=== PATIENT | female | born 1945 | race Caucasian/White ===

== ENCOUNTER 2016-10-24 08:52 | Outpatient (CLI) | payer MEDICARE, BC ==
[~2016-10-24 08:52] MED LIST: DEXAMETHASONE SOD PHOSPHATE IV PRN; IRON SUCROSE COMPLEX 200 MG in NORMAL SALINE 100 ML IV PRN; NORMAL SALINE 250 ML IV PRN; NORMAL SALINE IV PRN
[2016-10-24 10:19] VITALS: BP 153/71
== END 2016-10-24 10:34 | disposition home or self-care (01) ==
LOC: II 08:52 → 5TH 08:54 → II 10:34
PROVIDERS: ATTEND Internal Medicine Medical Oncology
PROC: 3E033GC Introduction of Other Therapeutic Substance into Peripheral Vein, Percutaneous Approach (ICD-10-PCS; principal; 2016-10-24)
PROC: 3E0333Z Introduction of Anti-inflammatory into Peripheral Vein, Percutaneous Approach (ICD-10-PCS; 2016-10-24)
DX: N18.6 End stage renal disease (principal); D63.1 Anemia in chronic kidney disease
CPT/HCPCS: 96365; 96375; J1756; J1100; 96367

== ENCOUNTER 2017-03-10 09:30 | Inpatient (IN) | payer MEDICARE, BC ==
[2017-03-10] MEDS ORDERED: ONDANSETRON 4 MG TAB.RAPDIS PO ONE (09:43)
--- NOTE | 2017-03-10 09:46 | ER Document Report ---
ED Medical Screen (RME) - General Chief Complaint: Abdominal Pain Stated Complaint: VOMITING Notes: The patient is a 71-year-old female, past medical history peritoneal dialysis patient (Dr. Burgess is her Regulatory Product Manager), ventral hernia, presents with 3 days of nausea, vomiting and upper abdominal pain. Normal bowel movements. Taking without much relief of symptoms. Last dialysis session 3 days ago. Moderate upper abdominal tenderness. Good bowel sounds. I have greeted and performed a rapid initial assessment of this patient. A comprehensive ED assessment and evaluation of the patient, analysis of test results and completion of the medical decision making process will be conducted by additional ED providers. TRAVEL OUTSIDE OF THE [place] IN LAST 30 DAYS: No - Related Data Allergies/Adverse Reactions: aspirin [Aspirin] Allergy (Mild, Verified 03/10/17 09:37) kidneys burn Past Medical History - Past Medical History Cardiac Medical History: Reports: Hx Hypertension - on meds/recent new med x 3 weeks Denies: Hx Coronary Artery Disease, Hx Heart Attack Pulmonary Medical History: Reports: Hx Pneumonia Denies: Hx Asthma, Hx Bronchitis, Hx COPD Neurological Medical History: Reports: Hx Cerebrovascular Accident - 2003 WITH HX OF R SIDED WEAKNESS. Denies: Hx Seizures Renal/ Medical History: Reports: Hx Peritoneal Dialysis Musculoskeltal Medical History: Denies Hx Arthritis - Immunizations Hx Diphtheria, Pertussis, Tetanus Vaccination: Yes Physical Exam - Vital signs Vitals: Temp Pulse Resp BP Pulse Ox 98.8 F 78 16 144/85 H 97 03/10/17 09:37 03/10/17 09:37 03/10/17 09:37 03/10/17 09:37 03/10/17 09:37 Course - Vital Signs Vital signs: Temp Pulse Resp BP Pulse Ox 98.8 F 78 16 144/85 H 97 03/10/17 09:37 03/10/17 09:37 03/10/17 09:37 03/10/17 09:37 03/10/17 09:37
[2017-03-10 10:14] LABS: ABSOLUTE LYMPHOCYTES (AUTO) 0.8 10^3/uL (0.5-4.7); ABSOLUTE MONOCYTES (AUTO) 0.6 10^3/uL (0.1-1.4); ABSOLUTE NEUT (AUTO) 7.3 10^3/uL (1.7-8.2); BASOPHILS % (AUTO) 0.2 % (0-2); EOSINOPHILS % (AUTO) 0.1 % (0-6); HEMATOCRIT 41.6 % (36.0-47.0); HEMOGLOBIN 13.6 g/dL (12.0-15.5); HGB HCT DIFFERENCE -0.8; LYMPHOCYTES % (AUTO) 8.9 % (13-45); MEAN CORPUSCULAR HGB CONC 32.8 g/dL (32.0-36.0); MEAN CORPUSCULAR VOLUME 92 fl (80-97); MONOCYTES % (AUTO) 6.7 % (3-13); RED BLOOD COUNT 4.54 10^6/uL (3.72-5.28); SEGMENTED NEUTROPHILS % (AUTO) 84.1 % (42-78); WHITE BLOOD COUNT 8.7 10^3/uL (4.0-10.5)
[2017-03-10 10:35] LABS: ALANINE AMINOTRANSFERASE 21 U/L (9-52); ALBUMIN 3.2 g/dL (3.5-5.0); ALKALINE PHOSPHATASE 55 U/L (38-126); ANION GAP 9 (5-19); ASPARTATE AMINO TRANSFERASE 22 U/L (14-36); BILIRUBIN,DIRECT 0.4 mg/dL (0.0-0.4); BILIRUBIN,TOTAL 0.6 mg/dL (0.2-1.3); BLOOD UREA NITROGEN 62 mg/dL (7-20); CALCIUM 9.5 mg/dL (8.4-10.2); CARBON DIOXIDE 32 mmol/L (22-30); CHLORIDE 95 mmol/L (98-107); CREATINE KINASE 29 U/L (30-135); CREATININE RESULT 9.33 mg/dL (0.52-1.25); GLUCOSE 127 mg/dL (75-110); LIPASE 28.2 U/L (23-300); POTASSIUM 4.3 mmol/L (3.6-5.0); SODIUM 136.3 mmol/L (137-145); TOTAL PROTEIN 6.2 g/dL (6.3-8.2)
[2017-03-10 10:43] LABS: APPEARANCE,URINE SLIGHTLY-CLOUDY; BILIRUBIN,URINE NEGATIVE (NEGATIVE); GLUCOSE, URINE 50 mg/dL (NEGATIVE); KETONES,URINE NEGATIVE (NEGATIVE); LEUKOCYTE ESTERASE,URINE NEGATIVE (NEGATIVE); NITRITE,URINE NEGATIVE (NEGATIVE); PROTEIN,URINE >=500 mg/dL (NEGATIVE); URINE SPECIFIC GRAVITY 1.011; UROBILINOGEN,URINE NEGATIVE mg/dL (<2.0)
--- NOTE | 2017-03-10 10:46 | ER Document Report ---
ED General - General Chief Complaint: Abdominal Pain Stated Complaint: VOMITING Time Seen by Provider: 03/10/17 09:59 Mode of Arrival: Ambulatory Information source: Patient, Relative Notes: This is a 71-year-old female with a history of peritoneal dialysis who presents with abdominal pain and vomiting for the past 2 or 3 days. She denies fevers, chills. No diarrhea, last BM was 2 days ago. Family states that she ate spaghetti that might not have tasted just right, 2 days ago, and symptoms started after that. Dialysis fluid has been clear per family, not cloudy. She tolerated sips of water this morning, but last po was a bite of soup last night which she vomited. No dysuria. No cough/congestion, no SOB. TRAVEL OUTSIDE OF THE [place] IN LAST 30 DAYS: No - Related Data Allergies/Adverse Reactions: aspirin [Aspirin] Allergy (Mild, Verified 03/10/17 09:37) kidneys burn Past Medical History - Social History Smoking Status: Unknown if Ever Smoked Family History: Reviewed & Not Pertinent Patient has suicidal ideation: No Patient has homicidal ideation: No - Past Medical History Cardiac Medical History: Reports: Hx Hypertension - on meds/recent new med x 3 weeks Denies: Hx Coronary Artery Disease, Hx Heart Attack Pulmonary Medical History: Reports: Hx Pneumonia Denies: Hx Asthma, Hx Bronchitis, Hx COPD Neurological Medical History: Reports: Hx Cerebrovascular Accident - 2003 WITH HX OF R SIDED WEAKNESS. Denies: Hx Seizures Renal/ Medical History: Reports: Hx Peritoneal Dialysis Musculoskeltal Medical History: Denies Hx Arthritis - Immunizations Hx Diphtheria, Pertussis, Tetanus Vaccination: Yes Review of Systems - Review of Systems Constitutional: denies: Chills, Fever EENT: No symptoms reported Cardiovascular: No symptoms reported. denies: Chest pain, Dyspnea Respiratory: No symptoms reported. denies: Cough Gastrointestinal: See HPI Genitourinary: No symptoms reported. denies: Dysuria, Frequency Musculoskeletal: No symptoms reported Skin: No symptoms reported Hematologic/Lymphatic: No symptoms reported Neurological/Psychological: No symptoms reported Physical Exam - Vital signs Vitals: Temp Pulse Resp BP Pulse Ox 98.8 F 78 16 144/85 H 97 03/10/17 09:37 03/10/17 09:37 03/10/17 09:37 03/10/17 09:37 03/10/17 09:37 - Notes Notes: PHYSICAL EXAMINATION: GENERAL: Somewhat pale but well appearing, well-nourished, pleasant and conversant and in no acute distress. HEAD: Atraumatic, normocephalic. EYES: Pupils equal round and reactive to light, extraocular movements intact, sclera anicteric, conjunctiva are normal. ENT: nares patent, oropharynx clear without exudates. Moist mucous membranes. NECK: Normal range of motion, supple without lymphadenopathy LUNGS: Breath sounds clear to auscultation bilaterally and equal. No wheezes rales or rhonchi. HEART: Regular rate and rhythm without murmurs ABDOMEN: Soft, nondistended, diffuse mild TTP, normoactive bowel sounds. No guarding, no rebound. No masses appreciated. EXTREMITIES: Normal range of motion, no pitting or edema. No cyanosis. NEUROLOGICAL: Cranial nerves grossly intact. Normal speech. No gross focal motor or sensory deficits appreciated PSYCH: Normal mood, normal affect. SKIN: Warm, Dry, no rash, somewhat pale Course - Re-evaluation Re-evalutation: 03/10/17 12:12 Dr. Burgess nephrology has been consulted, awaiting consult to discuss initiating PD and obtaining fluid for culture 03/10/17 12:[address] Burgess. Recommends instill 1500ml, wait 30 minutes, withdraw and send to lab for culture and cell counts. Awaiting CT results. 03/10/17 18:09 Discussed peritoneal fluid results with Dr. Burgess who agrees with admission for peritonitis, ceftaz and vanc. Discussed with Dr. Gilman. No vomiting in ED (8 hours), I suspect pain and symptoms secondary to peritonitis and not to bowel obstruction at this point. Pt has active bowel sounds. - Vital Signs Vital signs: Temp Pulse Resp BP Pulse Ox 98.7 F 70 16 152/67 H 94 03/10/17 17:44 03/10/17 17:44 03/10/17 17:44 03/10/17 17:44 03/10/17 17:44 - Laboratory Result Diagrams: 03/10/17 09:55 03/10/17 09:55 Laboratory results interpreted by me: 03/10/17 03/10/17 03/10/17 09:55 09:55 10:10 RDW 16.0 H Seg Neutrophils % 84.1 H Lymphocytes % 8.9 L Sodium 136.3 L Chloride 95 L Carbon Dioxide 32 H BUN 62 H Creatinine 9.33 H Est GFR ( Amer) 5 L Est GFR (Non-Af Amer) 4 L Glucose 127 H Creatine Kinase 29 L Total Protein 6.2 L Albumin 3.2 L Urine Protein >=500 H Urine Glucose (UA) 50 H Urine Blood SMALL H Discharge - Discharge Clinical Impression: Spontaneous bacterial peritonitis, Peritoneal dialysis catheter in place Condition: Serious Disposition: ADMITTED INPATIENT Admitting Provider: Hospitalist - Dr. Gilman Unit Admitted: Telemetry
[2017-03-10] MEDS ORDERED: ONDANSETRON HCL INJ/PF 4 MG/2 ML SDV IV ONE (12:44)
[2017-03-10] MEDS ORDERED: MORPHINE SULFATE 10 MG/ML INJ IV ONE ×2 (12:44→15:07)
[2017-03-10 16:46] LABS: FLUID TYPE PERITONEAL
[2017-03-10 16:47] LABS: FLUID APPEARANCE SLIGHTLY HAZY; FLUID RBC SIDE 1 76; FLUID RBC SIDE 2 82
[2017-03-10 16:48] LABS: FLUID RBC DILUENT USED NONE USED; FLUID RBC DILUTION FACTOR 1; TOTAL RBC SQUARES COUNTED FLD 225
--- NOTE | 2017-03-10 17:12 | EKG REPORT ---
SEVERITY:- NORMAL ECG - SINUS RHYTHM : Confirmed by: Azra Castro MD 10-Mar-2017 17:11:31
[2017-03-10] MEDS ORDERED: VANCOMYCIN HCL INJ 1000 MG VIAL IV ONE (18:06)
[2017-03-10] MEDS ORDERED: CEFTAZIDIME INJ 1 GM VIAL IV ONE (18:06)
[2017-03-10] MEDS ORDERED: DEXTROSE 50%-WATER 25 GM/50 ML DISP.SYRIN IV PRN ×2 (18:43)
[2017-03-10] MEDS ORDERED: GLUCAGON,HUMAN RECOMB 1 MG INJ SUBCUT PRN (18:43)
[2017-03-10] MEDS ORDERED: ACETAMINOPHEN 650 MG SUPP.RECT PR PRN (18:43)
[2017-03-10] MEDS ORDERED: ONDANSETRON HCL INJ/PF 4 MG/2 ML SDV IV PRN (18:43)
[2017-03-10] MEDS ORDERED: DEXTROSE 40% GEL 15 GM TUBE PO PRN ×2 (18:43)
[2017-03-10] MEDS ORDERED: ERTAPENEM SODIUM INJ 1 GM VIAL IV SCH (18:45)
[2017-03-10] MEDS ORDERED: METOPROLOL TARTRATE PF/INJ 5 MG/5 ML SDV IV PRN (18:49)
[2017-03-10] MEDS ORDERED: MORPHINE SULFATE 10 MG/ML INJ IV PRN (19:05)
[2017-03-10] MEDS ORDERED: ERTAPENEM SODIUM INJ 1 GM VIAL IV PRN (19:20)
[2017-03-10] MEDS ORDERED: FAMOTIDINE INJ/PF 20 MG/2 ML SDV IV ONE (20:00)
[2017-03-10] MEDS ORDERED: ERTAPENEM SODIUM 1 GM in NORMAL SALINE 50 ML IV ONE (20:00)
--- NOTE | 2017-03-10 20:39 | HISTORY AND PHYSICAL E ---
History and Physical NAME: CAPRI GARCIA : 1945 AGE: 71Y ADMITTED: 03/10/2017 ROOM: 408 PRIMARY CARE PHYSICIAN: RIANA Cabral. CHIEF COMPLAINT: Abdominal pain. HISTORY OF PRESENT ILLNESS: The patient is a 71-year-old female with end-stage renal disease on peritoneal dialysis, started to develop abdominal pain and cramping about 6 days ago. The patient thought that it was just from the hiatal hernia; therefore, the patient would take medications for acid reflux. Symptoms lingered on until about 3 days ago after eating spaghetti. The patient started to develop vomiting. There is no diarrhea or constipation. Last bowel movement was yesterday according to the family. There are no chills or fever. There is no purulent drainage noted on the peritoneal dialysis site. Apparently the pain persisted and the patient was unable to eat. Symptoms got worse today and the patient could not hold anything by mouth. Therefore, the patient was brought to the emergency room for evaluation. CT scan questionable ileus or partial small bowel obstruction. The patient was begun on antibiotics for possible peritonitis and was referred for admission. PAST MEDICAL HISTORY: 1. End-stage renal disease on peritoneal dialysis. 2. Hiatal hernia. 3. Gastroesophageal reflux disease. 4. Hypertension. 5. History of stroke with right-sided weakness. PAST SURGICAL HISTORY: 1. Peritoneal dialysis catheter placement. 2. Rectocele repair. 3. Hysterectomy. 4. Back surgery. ALLERGIES: ASPIRIN. SOCIAL HISTORY: No reported alcohol abuse, tobacco abuse or drug abuse. FAMILY HISTORY: Reported negative for any illness. MEDICATIONS: From prior records, she is on: 1. Doxazosin 4 mg at bedtime. 2. Losartan 100 mg p.o. twice a day. 3. Metoprolol 50 mg twice daily. 4. Percocet as needed. 5. Trazodone 100 mg p.o. at bedtime. REVIEW OF SYSTEMS: Other than stated in the history, there is no headache, dizziness, syncope, no doubling of vision, blurring of vision, no sinus congestion, postnasal drip, sore throat, no swollen glands in the neck. There is no cough or hemoptysis. No neck pain or stiffness. No chest pain, palpitation, PND or orthopnea. No shortness of breath or wheezing. There is no melena, hematochezia or hematemesis. Denies any dysuria, urgency or frequency. The patient still makes some urine. No hematuria, no vaginal discharge or bleeding, no heat or cold intolerance, no profuse sweating, no weight gain or weight loss, no polyuria, polydipsia or polyphagia. The patient has chronic right-sided weakness but no new focal deficits. No rash or pruritus, no bleeding tendencies or easy bruisability. There is generalized body myopathy but no myalgias or arthralgias. All other systems reviewed with the patient and other than stated above were negative. PHYSICAL EXAMINATION: GENERAL: The patient is conscious and coherent. She is not in acute distress. VITAL SIGNS: Blood pressure 152/67, pulse 70, respirations 16, temperature 98.7 degrees Fahrenheit. HEENT: Normocephalic, atraumatic. [place] palpebral conjunctivae. Anicteric sclerae. Pupils are reactive to light. No nasal or oral discharge. No pharyngeal congestion. Oral mucosa is dry. NECK: Supple with no JVD or bruit. No anterior neck masses noted with swallowing. CHEST: Symmetrical in expansion with no retractions. LUNGS: Clear to auscultation bilateral. No wheezing or rales were noted. HEART: Regular with no gallops or murmurs. No heaves or thrills were noted. ABDOMEN: Flat and soft. There is voluntary guarding. There is direct tenderness diffusely but more on the epigastric area and upper quadrants. There are diminished bowel sounds. No bruit. EXTREMITIES: Lower extremities nonedematous. Pulses are present bilateral and equal. Mucosa in nail beds with no cyanosis. PSYCHIATRIC: The patient is awake, alert and oriented to 3 spheres. INITIAL LABORATORY: WBC is normal. Platelets are normal, hemoglobin 13.6, hematocrit 41.6, creatinine 9.33, BUN 62, glucose 127. Sodium 136, potassium 4.3, troponin of 0.028. Urinalysis: WBC of 5. Peritoneal fluid reportedly hazy with WBC of 197 with 72% segmented neutrophils. CT of the abdomen and pelvis show ileus or partial SBO. EKG shows sinus rhythm. ASSESSMENT: 1. Abdominal pain, possible peritonitis. 2. Adynamic ileus, questionable partial small bowel obstruction. 3. End-stage renal disease on peritoneal dialysis. 4. Hiatal hernia with gastroesophageal reflux disease. 5. Essential hypertension. 6. History of stroke with residual right-sided weakness. PLAN: 1. The patient will be admitted to telemetry. 2. I will keep her n.p.o. except medications. 3. I will hydrate the patient gently with normal saline. 4. We will consult surgery to evaluate for CT scan findings of questionable partial small bowel obstruction. 5. In the meantime I will begin the patient on broad-spectrum antibiotic. Culture has already been sent from the emergency room including the blood and the peritoneal fluid. 6. We will consult nephrology for continued dialysis. 7. DVT prophylaxis with heparin will be placed. 8. I will keep her n.p.o. at this time. 9. Further testing depends on the initial evaluations as outlined above. DICTATING PHYSICIAN: NGHIA SO M.D. [id number] PHY#: [id number] ID: [id number] JOB#: [id number] ACCT: [id number] cc:NGHIA SO M.D. >
[2017-03-10] MEDS ORDERED: FAMOTIDINE INJ/PF 20 MG/2 ML SDV IV SCH (22:00)
[2017-03-10] MEDS: HEPARIN SOD (PORCINE) 5,000 UNIT/ML 1 ML SYRINGE SUBCUT SCH (22:12)
[2017-03-10] MEDS: TRAZODONE HCL 50 MG TABLET PO SCH (22:14)
[2017-03-10] MEDS: NORMAL SALINE 1000 ML 1,000 ML IV PRN (22:17)
[2017-03-10] MEDS ORDERED: ERTAPENEM SODIUM INJ 1 GM VIAL ONE (23:45)
[2017-03-11] MEDS ORDERED: ERTAPENEM SODIUM 1 GM in NORMAL SALINE 50 ML IV ONE (01:00)
[2017-03-11 05:55] LABS: ABSOLUTE EOSINOPHILS # (AUTO) 0.2 10^3/uL (0.0-0.6); ABSOLUTE LYMPHOCYTES (AUTO) 0.7 10^3/uL (0.5-4.7); ABSOLUTE MONOCYTES (AUTO) 0.5 10^3/uL (0.1-1.4); ABSOLUTE NEUT (AUTO) 2.6 10^3/uL (1.7-8.2); BASOPHILS % (AUTO) 0.2 % (0-2); EOSINOPHILS % (AUTO) 4.2 % (0-6); HEMATOCRIT 32.5 % (36.0-47.0); HGB HCT DIFFERENCE -0.1; LYMPHOCYTES % (AUTO) 17.1 % (13-45); MEAN CORPUSCULAR HEMOGLOBIN 30.9 pg (27.0-33.4); MEAN CORPUSCULAR HGB CONC 33.3 g/dL (32.0-36.0); MEAN CORPUSCULAR VOLUME 93 fl (80-97); MONOCYTES % (AUTO) 13.4 % (3-13); RED CELL DISTRIBUTION WIDTH 15.7 % (11.5-14.0); SEGMENTED NEUTROPHILS % (AUTO) 65.1 % (42-78); WHITE BLOOD COUNT 3.9 10^3/uL (4.0-10.5)
[2017-03-11 06:13] LABS: HEMOGLOBIN 10.8 g/dL (12.0-15.5)
[2017-03-11 06:19] LABS: BLOOD UREA NITROGEN 61 mg/dL (7-20); CALCIUM 8.4 mg/dL (8.4-10.2); CARBON DIOXIDE 27 mmol/L (22-30); CHLORIDE 100 mmol/L (98-107); CREATININE RESULT 8.19 mg/dL (0.52-1.25); GLUCOSE 90 mg/dL (75-110); POTASSIUM 4.3 mmol/L (3.6-5.0)
[2017-03-11 06:20] LABS: ANION GAP 6 (5-19); LIPASE 24.4 U/L (23-300); SODIUM 132.9 mmol/L (137-145)
[2017-03-11 06:34] LABS: AMYLASE < 30 U/L (30-110)
[2017-03-11] MEDS: HEPARIN SOD (PORCINE) 5,000 UNIT/ML 1 ML SYRINGE SUBCUT SCH ×3 (07:01→21:50)
--- NOTE | 2017-03-11 08:20 | CONSULTATION REPORT E ---
Consultation Report NAME: CAPRI GARCIA : 1945 AGE: 71Y DATE: 03/10/2017 408 A TO: IGOR YOST M.D. FROM: Requesting Physician REASON FOR CONSULTATION: Patient with ileus versus early small bowel obstruction on a CAT scan. HISTORY OF PRESENT ILLNESS: This is a 71-year-old female with end-stage renal disease on peritoneal dialysis. She complained of vomiting about 3 days ago and had abdominal pains and cramping since 6 days ago, that got worse on Saturday, the day before admission. She had a CAT scan of the abdomen on admission, which showed ileus versus partial small bowel obstruction. She had a bowel movement last Saturday or the day before admission, but she claims she has been having flatus today. Denies any vomiting at this time. Denies any chills or fever. PAST MEDICAL HISTORY: 1. End-stage renal disease, on PD. 2. Hiatal hernia. 3. GERD. 4. Hypertension. 5. History of stroke with right-sided weakness. PAST SURGICAL HISTORY: 1. Peritoneal dialysis catheter placement. 2. Rectocele repair. 3. Hysterectomy. 4. Back surgery. ALLERGIES: PENICILLIN. SOCIAL HISTORY: Denies alcohol, tobacco, or drug abuse. FAMILY HISTORY: Noncontributory. MEDICATIONS: 1. Doxazosin 4 mg at bedtime. 2. Losartan 100 mg p.o. b.i.d. 3. Metoprolol 50 mg b.i.d. 4. Percocet as needed. 5. Trazodone 100 mg at bedtime. REVIEW OF SYSTEMS: As in HPI. Patient claims she has been having delayed gastric and intestinal emptying for the past year and she is being followed by Dr. Zamora in [place] with serial colonoscopies. The patient denies any blurring of vision. No hearing problems. No sinus congestion or sore throat. No cough. No neck pains. No chest pains. No melena, hematochezia or hematemesis. Denies any dysuria. She still makes some urine. No hematuria or vaginal discharge. No heat or cold intolerance. No weight gain or weight loss. No polydipsia or polyuria. She has chronic right-sided weakness, but no new focal deficits. No rash or pruritus. No bleeding tendencies. She has generalized body myopathy, but no myalgias or arthralgias. All other systems unremarkable. PHYSICAL EXAMINATION: GENERAL: The patient is a 71-year-old female, alert and oriented. Denies any significant pains at this time. VITAL SIGNS: Show blood pressure 152/67, pulse rate 70, respirations 16 per minute, temperature 98.7 degrees Fahrenheit. HEENT: Normocephalic, no icterus. Pupils are reactive to light. No nasal or oral discharge. No pharyngeal congestion. Oral mucosa is dry. NECK: Supple. No neck mass. CHEST: Good breath sounds. HEART: Regular sinus rhythm. No murmurs. ABDOMEN: Soft, justly slightly distended with minimal abdominal tenderness. There is some voluntary guarding. Bowel sounds are diminished. EXTREMITIES: No edema. The patient just had the PD catheter working. INITIAL LABORATORY: WBC is normal. Platelets are normal with a hemoglobin 13.6 and hematocrit 41.6. Creatinine is 9.3 and BUN is 62 and glucose of 137. Sodium 136, potassium 4.3, and troponin of 0.028. Urinalysis: wbc's of 5. Peritoneal fluid reportedly hazy with WBC of 197 with 72% segmented neutrophils. PD fluid sent for cultures. CT of the abdomen and pelvis showed ileus versus partial small bowel obstruction. IMPRESSION: 1. Abdominal pain, possibly due to primary peritonitis. 2. Dynamic ileus. 3. End-stage renal disease, on peritoneal dialysis. 4. Hiatal hernia with gastroesophageal reflux disease. 5. Hypertension. 6. History of cerebrovascular with residual right-sided weakness. RECOMMENDATIONS: 1. Continue with IV antibiotics. 2. Await culture of peritoneal dialysis sample. 3. We will monitor the patient with you. 4. Keep the patient n.p.o., except for meds. DICTATING PHYSICIAN: IGOR YOST M.D. [id number] PHY#: [id number] ID: [id number] JOB#: [id number] ACCT: [id number] cc:IGOR YOST M.D. >
[2017-03-11] MEDS ORDERED: ACETAMINOPHEN 650 MG SUPP.RECT PR PRN (08:57)
--- NOTE | 2017-03-11 09:05 | PDOC PROGRESS REPORT ---
Subjective Progress Note for:: 03/11/17 Subjective:: Patient feels better this morning. Abdominal pain is less. No nausea or vomiting this time. No bowel movement yet. Apparently, family reports not much of the dialysate fluid came out the other day. Denies any shortness of breath, dysuria nor vaginal discharge. No chest pain or shortness of breath. Physical Exam Vital Signs: Temp Pulse Resp BP Pulse Ox 98.4 F 74 17 136/64 H 94 03/11/17 03:00 03/11/17 03:00 03/11/17 03:00 03/11/17 03:00 03/11/17 03:00 Intake & Output 03/10/17 03/11/17 03/12/17 06:59 06:59 06:59 Intake Total 1850 Balance 1850 Weight 64.1 kg General appearance: PRESENT: no acute distress, cooperative Head exam: PRESENT: normocephalic Eye exam: PRESENT: EOMI Mouth exam: PRESENT: moist, neck supple Neck exam: ABSENT: JVD - Urine Respiratory exam: PRESENT: clear to auscultation rima. ABSENT: rhonchi, wheezes Cardiovascular exam: PRESENT: RRR. ABSENT: gallop GI/Abdominal exam: PRESENT: hyperactive bowel sounds, soft, tenderness - Present but less periumbilically Extremities exam: ABSENT: pedal edema Neurological exam: PRESENT: alert, awake, oriented to situation Skin exam: PRESENT: dry, warm. ABSENT: cyanosis Results Laboratory Results: 03/11/17 05:21 03/11/17 05:21 03/11/17 03/11/17 05:21 05:21 WBC 3.9 L RBC 3.50 L Hgb 10.8 L D Hct 32.5 L MCV 93 MCH 30.9 MCHC 33.3 RDW 15.7 H Plt Count 177 Seg Neutrophils % 65.1 Lymphocytes % 17.1 Monocytes % 13.4 H Eosinophils % 4.2 Basophils % 0.2 Absolute Neutrophils 2.6 Absolute Lymphocytes 0.7 Absolute Monocytes 0.5 Absolute Eosinophils 0.2 Absolute Basophils 0.0 Sodium 132.9 L Potassium 4.3 Chloride 100 Carbon Dioxide 27 Anion Gap 6 BUN 61 H Creatinine 8.19 H Est GFR ( Amer) 6 L Est GFR (Non-Af Amer) 5 L Glucose 90 Calcium 8.4 Amylase < 30 L Lipase 24.4 Impressions: Abdomen/Pelvis CT 03/10/17 12:11 IMPRESSION: Ileus or partial small bowel obstruction. Assessment & Plan - Diagnosis (1) Spontaneous bacterial peritonitis Is this a current diagnosis for this admission?: Yes (2) Adynamic ileus Is this a current diagnosis for this admission?: Yes (3) End stage renal disease on dialysis Is this a current diagnosis for this admission?: Yes (4) GERD (gastroesophageal reflux disease) Qualifiers: Esophagitis presence: without esophagitis Qualified Code(s): K21.9 - Gastro-esophageal reflux disease without esophagitis Is this a current diagnosis for this admission?: Yes (5) Essential hypertension Is this a current diagnosis for this admission?: Yes (6) History of stroke Is this a current diagnosis for this admission?: Yes - Time Time Spent with patient: 25-34 minutes - Plan Summary Plan Summary: Continue current antibiotics for now. Follow cultures. Nephrology consultation for hemodialysis. Case discussed with surgical service. No obstruction reported we will continue to monitor. We will advance diet as patient tolerates. Continue supportive care.
[2017-03-11] MEDS ORDERED: VANCOMYCIN HCL INJ 1000 MG VIAL IV SCH (10:00)
--- NOTE | 2017-03-11 10:35 | PROGRESS NOTE E ---
Progress Note NAME: CAPRI GARCIA : 1945 AGE: 71Y DATE: 03/11/2017 ROOM: 408 SUBJECTIVE: Overnight the patient states she feels some better; her who is her care provider states the patient has had no nausea or vomiting. OBJECTIVE: VITAL SIGNS: Stable; the patient had no fever overnight. GENERAL: The patient appears to be in no acute distress. ABDOMEN: Examined. It is soft, flat. The PD catheter is examined. There is no evidence of hematoma or erythema. The patient is tender on the left abdominal wall, out of proportion to physical findings. DIAGNOSTICS: Laboratory profile shows a white blood cell count of 3900, no left shift. IMPRESSION: CLINICALLY IMPROVED INTRA-ABDOMINAL PROBLEM, POSSIBLY LOW-GRADE PRIMARY BACTERIAL PERITONITIS, NOW IMPROVED WITH INTRAVENOUS ANTIBIOTICS. RECOMMENDATIONS: I have spoken with Dr. Gilman, primary care physician, as well as Dr. Oscar Burgess, washing and screening plant supervisor. I do not believe the catheter needs any further treatment or removal. I believe PD treatments can continue. I will sign off from a surgical standpoint. Please reconsult if necessary. DICTATING PHYSICIAN: JAN JOHNSON M.D. [id number] PHY#: [id number] ID: [id number] JOB#: [id number] ACCT: [id number] cc: >
[2017-03-11 15:12] LABS: PATH REVIEW PATHOLOGIST REVIEWED
[2017-03-11] MEDS: GENTAMICIN SULFATE 0.1% CREAM 15 GM TP SCH (15:37)
--- NOTE | 2017-03-11 17:49 | PDOC CONSULTATION ---
Consultation Consult Date: 03/11/17 Consult reason:: Comanagement of acute peritonitisAnd the patient with ESRD on peritoneal dialysis. History of Present Illness Admission Date/PCP: 03/10/17 18:43 History of Present Illness: CAPRI GARCIA is a 71 year old female with a history of ESRD on peritoneal dialysis comes to the ER with history of progressive abdominal pains. She gives a 2 day history of epigastric pain which according to her who is her main caregiver thinks and mimic like she had an acute attack of dyspepsia from her long-standing chronic hiatal hernia. She was then given Maalox and other medications which give some relief but she began to have persistent pain associated with nausea and vomiting which progressed. This been happening for 2 days but they thought it was to do with the hiatal hernia. The states that the fluid drained from peritoneal dialysis was clear and was not cloudy. There is no history of any fever chills or riders. However, by Saturday it is getting progressively worse to the point of persistent nausea vomiting. Did discuss the case with the on-call PD nurse who advised them to go to the ER.Evaluations in the ER revealed that the patient had acute peritonitis.Patient then went on to have rapid exchanges after discussion is done with me by Dr. Donnelly in the ER ordered by IV antibiotic administration.Today patient is feeling a whole lot better. She still has abdominal pains but but no nausea or vomiting. A CT scan done in the ER revealed that she had partial ileus. She is also been screened by the surgeons who do not think she has an acute surgical abdomen at the moment. Past Medical History Cardiac Medical History: Reports: Hypertension-primary Denies: Coronary Artery Disease, Myocardial Infarction Pulmonary Medical History: Reports: Pneumonia Denies: Asthma, Bronchitis, Chronic Obstructive Pulmonary Disease (COPD) Neurological Medical History: Denies: Seizures Renal/ Medical History: Reports: End Stage Renal Disease - On peritoneal dialysis. Musculoskeltal Medical History: Denies: Arthritis Hematology Medical History: Reports Anemia of Chronic Kidney Disease Social History Smoking Status: Unknown if Ever Smoked Family History Parental Family History Reviewed: No - Negative for CKD/ESRD in the family. Children Family History Reviewed: Yes Sibling(s) Family History Reviewed.: Yes Medication/Allergy Home Medications: Metoprolol Succinate [Toprol XL 100 mg Tablet] 50 mg PO BID 07/19/13 Trazodone HCl 100 mg PO QHS 05/08/13 Losartan Potassium 100 mg PO QHS 03/24/14 Oxycodone HCl/Acetaminophen [Percocet 5-325 mg Tablet] 1 tab PO ASDIR PRN Amlodipine Besylate 5 mg PO QHS 03/10/17 Furosemide 20 mg PO DAILY 03/10/17 Potassium Chloride [Klor-Con 10 Meq Tablet.sa] 10 meq PO Q12 03/10/17 Rosuvastatin Calcium 10 mg PO DAILY 03/10/17 Allergies/Adverse Reactions: aspirin [Aspirin] Allergy (Mild, Verified 03/10/17 09:37) kidneys burn Review of Systems Constitutional: PRESENT: weakness. ABSENT: anorexia, chills, night sweats Nose, Mouth, and Throat: ABSENT: mouth pain, sore throat Cardiovascular: ABSENT: chest pain, edema, orthropnea, palpitations Respiratory: ABSENT: dyspnea, hemoptysis Gastrointestinal: PRESENT: abdominal pain, bloating, heartburn, nausea, vomiting. ABSENT: coffee ground emesis, constipation, diarrhea, dysphagia, hematemesis, hematochezia, melena Genitourinary: ABSENT: dysuria, hematuria Integumentary: ABSENT: lesions, pruritus, rash Neurological: ABSENT: abnormal gait, abnormal speech, confusion, focal weakness Hematologic/Lymphatic: ABSENT: easy bruising, lymphadenopathy Physical Exam Vital Signs: Temp Pulse Resp BP Pulse Ox 98.6 F 78 16 157/70 H 93 03/11/17 17:00 03/11/17 17:00 03/11/17 17:00 03/11/17 17:00 03/11/17 17:00 Intake & Output 03/10/17 03/11/17 03/12/17 06:59 06:59 06:59 Intake Total 1850 1500 Output Total 1100 300 Balance 750 1200 Weight 65 kg General appearance: PRESENT: no acute distress Eye exam: PRESENT: conjunctiva pink, EOMI, PERRLA. ABSENT: conjunctiva pale, nystagmus Ear exam: PRESENT: normal external ear exam Mouth exam: PRESENT: moist, neck supple Neck exam: ABSENT: lymphadenopathy, meningismus, tenderness, thyromegaly, tracheal deviation Respiratory exam: PRESENT: clear to auscultation rima. ABSENT: crackles, rhonchi Cardiovascular exam: PRESENT: +S1, +S2, systolic murmur GI/Abdominal exam: PRESENT: diminished bowel sounds, guarding - Mild. Abdomen was soft to firm., hypoactive bowel sounds, tenderness - Which was generalized.. ABSENT: mass Neurological exam: PRESENT: alert, awake, oriented to person, oriented to place , oriented to time Skin exam: ABSENT: cyanosis, dry, erythema, mottled, rash Results Laboratory Results: 03/11/17 05:21 03/11/17 05:21 03/11/17 03/11/17 05:21 05:21 WBC 3.9 L RBC 3.50 L Hgb 10.8 L D Hct 32.5 L MCV 93 MCH 30.9 MCHC 33.3 RDW 15.7 H Plt Count 177 Seg Neutrophils % 65.1 Lymphocytes % 17.1 Monocytes % 13.4 H Eosinophils % 4.2 Basophils % 0.2 Absolute Neutrophils 2.6 Absolute Lymphocytes 0.7 Absolute Monocytes 0.5 Absolute Eosinophils 0.2 Absolute Basophils 0.0 Sodium 132.9 L Potassium 4.3 Chloride 100 Carbon Dioxide 27 Anion Gap 6 BUN 61 H Creatinine 8.19 H Est GFR ( Amer) 6 L Est GFR (Non-Af Amer) 5 L Glucose 90 Calcium 8.4 Amylase < 30 L Lipase 24.4 Impressions: Abdomen/Pelvis CT 03/10/17 12:11 IMPRESSION: Ileus or partial small bowel obstruction. KUB X-Ray 03/11/17 06:00 IMPRESSION: MILD SMALL BOWEL DILATION, SIMILAR TO THE PREVIOUS CT. Assessment & Plan - Diagnosis (1) Acute peritonitis Plan: Patient better on current antibiotics.However patient is clinically better as she is having less pains.Will continue on current IV antibiotics. However patient needs to be in hospital for some more time as evidenced clinically as she is still has a subacute abdomen. Encourage the patient to stay in the hospital longer as she seems to be in a hurry to get home and have discouraged her from doing that. (2) Adynamic ileus Is this a current diagnosis for this admission?: YesPlan: Currently n.p.o. and see how she responds on a day by day basis. (3) End stage renal disease on dialysis Is this a current diagnosis for this admission?: YesPlan: Will do exchanges every 8 hours unlikely to exchanges she is doing at home because of residual renal functions. Discussed with the treating nurse Beverly. (4) Essential hypertension Is this a current diagnosis for this admission?: Yes (5) GERD (gastroesophageal reflux disease) Qualifiers: Esophagitis presence: without esophagitis Qualified Code(s): K21.9 - Gastro-esophageal reflux disease without esophagitis Is this a current diagnosis for this admission?: YesPlan: Start IV followed by oral PPI.
[2017-03-11] MEDS ORDERED: LANSOPRAZOLE 30 MG TAB.RAP.DR PO ONE (19:00)
[2017-03-11] MEDS: NORMAL SALINE 1000 ML 1,000 ML IV PRN (21:13)
[2017-03-11] MEDS: TRAZODONE HCL 50 MG TABLET PO SCH (21:47)
[2017-03-11] MEDS ORDERED: FAMOTIDINE INJ/PF 20 MG/2 ML SDV IV SCH (22:00)
--- NOTE | 2017-03-12 02:01 | Physician Advisory Note ---
Physician Advisor ProgressNote .: Pursuant to the plan for [facility], I have reviewed the medical record for this patient. Physician Advisor Statement: Possible documentation opportunities if attending agrees: 1. "Acute hyponatremia, suspect due to " 2. "Acute metabolic alkalosis, now resolved, suspect due to " As always, if concerned about any unstable VS or abnormal labs, please comment on them - what bad things they might indicate, why they concern you - & note what doing about them. Please also document each day the potential clinical problems you are concerned could occur if pt not kept in hospital for tx at this time. (These points are carlson - if present in each note, attending's status decision should be sufficiently supported.) Status: Pt w/underlying ESRD on peritoneal dialysis, now w/acute SBP, acute ileus, acute hyponatremia w/worsening, worrisome development of leukopenia on day 2 in setting of acute infxn, BP climbing into the HTN-sharon urgency/emergency range on day 2. Not able to safely go home after 1 MN in hospital, extremely high risk for morbidity & mortality if not tx'd/monitored in hospital setting. Tx & monitoring in inpatient hospital setting medically reasonable & necessary to protect pt's health, safety, & medical condition. Appropriate for INpt status. Thanks for your help with documentation accuracy/specificity improvement! Gena Guaman MD [facility] Physician Advisor, Fellow of Hospital Medicine
[2017-03-12] MEDS ORDERED: LANSOPRAZOLE 30 MG TAB.RAP.DR PO SCH (06:00)
[2017-03-12] MEDS ORDERED: ERTAPENEM SODIUM 0.5 GM in NORMAL SALINE 50 ML IV SCH (06:00)
[2017-03-12 06:11] LABS: HEMATOCRIT 29.6 % (36.0-47.0); HEMOGLOBIN 9.9 g/dL (12.0-15.5); HGB HCT DIFFERENCE 0.1; MEAN CORPUSCULAR HEMOGLOBIN 30.8 pg (27.0-33.4); MEAN CORPUSCULAR HGB CONC 33.6 g/dL (32.0-36.0); MEAN CORPUSCULAR VOLUME 92 fl (80-97); RED BLOOD COUNT 3.22 10^6/uL (3.72-5.28); RED CELL DISTRIBUTION WIDTH 15.3 % (11.5-14.0); WHITE BLOOD COUNT 3.5 10^3/uL (4.0-10.5)
[2017-03-12 06:29] LABS: BLOOD UREA NITROGEN 56 mg/dL (7-20); CALCIUM 8.1 mg/dL (8.4-10.2); CHLORIDE 104 mmol/L (98-107); CREATININE RESULT 7.98 mg/dL (0.52-1.25); GLUCOSE 88 mg/dL (75-110); MAGNESIUM 2.8 mg/dL (1.6-2.3); PHOSPHORUS 5.2 mg/dL (2.5-4.5); POTASSIUM 4.3 mmol/L (3.6-5.0)
[2017-03-12 06:39] LABS: CARBON DIOXIDE 27 mmol/L (22-30); SODIUM 134.8 mmol/L (137-145)
[2017-03-12 06:44] LABS: ANION GAP 4 (5-19)
[2017-03-12] MEDS: HEPARIN SOD (PORCINE) 5,000 UNIT/ML 1 ML SYRINGE SUBCUT SCH ×2 (06:54→13:01)
[2017-03-12] MEDS ORDERED: VANCOMYCIN HCL 500 MG in DEXTROSE 5%-WATER 100 ML IV SCH ×2 (09:39→14:00)
--- NOTE | 2017-03-12 12:38 | PDOC PROGRESS REPORT ---
Subjective Progress Note for:: 03/12/17 Subjective:: Patient seen in the hospital today. She feels much better than the fact that the abdominal pain is almost completely gone. She has been on liquids and solids and has tolerated that without any nausea vomiting. No history of chest pain shortness of breath no history of any fever chills.Is eager to go home. Physical Exam Vital Signs: Temp Pulse Resp BP Pulse Ox 98.2 F 74 16 153/61 H 94 03/12/17 07:51 03/12/17 07:51 03/12/17 07:51 03/12/17 07:51 03/12/17 07:51 Intake & Output 03/11/17 03/12/17 03/13/17 06:59 06:59 06:59 Intake Total 1850 7680 Output Total 1100 2500 Balance 750 5180 Weight 65 kg 64.9 kg General appearance: PRESENT: no acute distress Respiratory exam: PRESENT: clear to auscultation rima. ABSENT: crackles, rhonchi Cardiovascular exam: PRESENT: +S1, +S2, systolic murmur GI/Abdominal exam: PRESENT: normal bowel sounds, soft. ABSENT: tenderness - Which was generalized. Neurological exam: PRESENT: alert, awake, oriented to person, oriented to place , oriented to time Results Laboratory Results: 03/12/17 05:45 03/12/17 05:45 03/12/17 03/12/17 05:45 05:45 WBC 3.5 L RBC 3.22 L Hgb 9.9 L Hct 29.6 L MCV 92 MCH 30.8 MCHC 33.6 RDW 15.3 H Plt Count 150 Sodium 134.8 L Potassium 4.3 Chloride 104 Carbon Dioxide 27 Anion Gap 4 L BUN 56 H Creatinine 7.98 H Est GFR ( Amer) 6 L Est GFR (Non-Af Amer) 5 L Glucose 88 Calcium 8.1 L Phosphorus 5.2 H Magnesium 2.8 H Impressions: Abdomen/Pelvis CT 03/10/17 12:11 IMPRESSION: Ileus or partial small bowel obstruction. KUB X-Ray 03/11/17 06:00 IMPRESSION: MILD SMALL BOWEL DILATION, SIMILAR TO THE PREVIOUS CT. Assessment & Plan - Diagnosis (1) Acute peritonitis Plan: Patient with a culture-negative peritonitis currently on IV vancomycin and ertapenem. Patient much improved and stable. Okay to discharge and I will follow her as an outpatient at [facility]. She will be getting IV vancomycin/IV ceftazidime/Diflucan p.o. for the next 2 weeks and I discussed this with Bailey who is my nurse at [facility].I also discussed this with Dr. Clark who is her hospitalist here. (2) Adynamic ileus Is this a current diagnosis for this admission?: YesPlan: Resolved . She is tolerating p.o. feeds. (3) End stage renal disease on dialysis Is this a current diagnosis for this admission?: YesPlan: Continue on peritoneal dialysis as at home. She will be instilling her antibiotics IP and will discuss that with her PD nurse Bailey. (4) Essential hypertension Is this a current diagnosis for this admission?: YesPlan: Stable. (5) GERD (gastroesophageal reflux disease) Qualifiers: Esophagitis presence: without esophagitis Qualified Code(s): K21.9 - Gastro-esophageal reflux disease without esophagitis Is this a current diagnosis for this admission?: Yes
[2017-03-12] MEDS ORDERED: VANCOMYCIN HCL 500 MG in DEXTROSE 5%-WATER 100 ML IV ONE (13:00)
[2017-03-12] MEDS: GENTAMICIN SULFATE 0.1% CREAM 15 GM TP SCH (13:00)
[2017-03-12 13:06] VITALS: BP 176/68
[2017-03-12] MEDS ORDERED: FLUCONAZOLE 100 MG TABLET PO SCH (14:00)
--- NOTE | 2017-03-12 15:02 | PDOC DISCHARGE SUMMARY ---
General - Admit/Disc Date/PCP Admission Date/Primary Care Provider: 03/10/17 18:43 Discharge Date: 03/12/17 - Discharge Diagnosis (1) Acute peritonitis Is this a current diagnosis for this admission?: YesSummary: Cultures show no obvious pathogen and just mixed probable contaminant (2) Adynamic ileus Is this a current diagnosis for this admission?: YesSummary: Resolved with treatment of the peritonitis (3) End stage renal disease on dialysis Is this a current diagnosis for this admission?: YesSummary: Patient was evaluated by nephrology and will continue with peritoneal dialysis. (4) Essential hypertension Is this a current diagnosis for this admission?: Yes (5) GERD (gastroesophageal reflux disease) Is this a current diagnosis for this admission?: Yes - Additional Information Discharge Diet: Cardiac Discharge Activity: Activity As Tolerated Home Medications: Metoprolol Succinate [Toprol XL 100 mg Tablet] 50 mg PO BID 05/08/13 Trazodone HCl 100 mg PO QHS 05/08/13 Losartan Potassium 100 mg PO QHS 03/24/14 Oxycodone HCl/Acetaminophen [Percocet 5-325 mg Tablet] 1 tab PO ASDIR PRN Amlodipine Besylate 5 mg PO QHS 03/10/17 Furosemide 20 mg PO DAILY 03/10/17 Potassium Chloride [Klor-Con 10 Meq Tablet.sa] 10 meq PO Q12 03/10/17 Rosuvastatin Calcium 10 mg PO DAILY 03/10/17 Ertapenem Sodium [Invanz Inj 1 gm Vial] 0.5 gm IV DAILY@0600 #14 vial 03/12/17 Fluconazole [Diflucan 100 mg Tablet] 100 mg PO DAILY #14 tablet 03/12/17 Vancomycin/0.9 % Sod Chloride [Vanco 500 mg/100 ml-0.9% NaCl] 500 mg IV Q48HP # 7 froz.[id number] 03/12/17 History of Present Illness History of Present Illness: CAPRI GARCIA is a 71 year old female history of end-stage renal disease who does peritoneal dialysis who presented with worsening abdominal pain. The patient was found to have an ileus as well as peritonitis related to her peritoneal dialysis catheter. The patient is admitted for IV antibiotics and treatment of the peritonitis Hospital Course Hospital Course: The 71-year-old female admitted with acute peritonitis with associated small bowel ileus. The patient was made n.p.o. and started on IV antibiotics. Patient was treated with vancomycin and ertapenem. The patient had improvement in her abdominal pain. Her ileus resolved spontaneously. She was tolerating her diet well and it was felt that she could be discharged home. The patient was evaluated by nephrology during this hospitalization and they recommended a 2 week course of antibiotics. Dr. Burgess is arranging for this to be done as an outpatient. Patient also was instructed to take Diflucan 100 mg daily for 2 weeks. Physical Exam Vital Signs: Temp Pulse Resp BP Pulse Ox 98.4 F 71 16 176/68 H 92 03/12/17 14:18 03/12/17 14:18 03/12/17 14:18 03/12/17 14:18 03/12/17 14:18 Intake & Output 03/11/17 03/12/17 03/13/17 06:59 06:59 06:59 Intake Total 1850 7680 1500 Output Total 1100 2500 1000 Balance 750 5180 500 Weight 65 kg 64.9 kg General appearance: PRESENT: no acute distress Eye exam: PRESENT: conjunctiva pink. ABSENT: scleral icterus Mouth exam: PRESENT: moist, tongue midline Neck exam: ABSENT: JVD Respiratory exam: PRESENT: clear to auscultation rima. ABSENT: rales, rhonchi, wheezes Cardiovascular exam: PRESENT: RRR. ABSENT: diastolic murmur, rubs, systolic murmur GI/Abdominal exam: PRESENT: normal bowel sounds, soft, other - Peritoneal dialysis catheter in place. ABSENT: distended, guarding, mass, organolmegaly, rebound, tenderness Extremities exam: ABSENT: calf tenderness, clubbing, pedal edema Neurological exam: PRESENT: alert, awake, oriented to person, oriented to place , oriented to time, oriented to situation, CN II-XII grossly intact. ABSENT: motor sensory deficit Psychiatric exam: PRESENT: appropriate affect Results Laboratory Results: 03/12/17 05:45 03/12/17 05:45 03/12/17 03/12/17 05:45 05:45 WBC 3.5 L RBC 3.22 L Hgb 9.9 L Hct 29.6 L MCV 92 MCH 30.8 MCHC 33.6 RDW 15.3 H Plt Count 150 Sodium 134.8 L Potassium 4.3 Chloride 104 Carbon Dioxide 27 Anion Gap 4 L BUN 56 H Creatinine 7.98 H Est GFR ( Amer) 6 L Est GFR (Non-Af Amer) 5 L Glucose 88 Calcium 8.1 L Phosphorus 5.2 H Magnesium 2.8 H Impressions: Abdomen/Pelvis CT 03/10/17 12:11 IMPRESSION: Ileus or partial small bowel obstruction. KUB X-Ray 03/11/17 06:00 IMPRESSION: MILD SMALL BOWEL DILATION, SIMILAR TO THE PREVIOUS CT. Qualifiers PATEINT BEING DISCHARGED WITH ANY OF THE FOLLOWING DIAGNOSIS?: No Plan Discharge Plan: Patient is discharged home. She will follow-up with Dr. Burgess in 1 week. Time Spent: Greater than 30 Minutes
[2017-03-14] MEDS ORDERED: VANCOMYCIN HCL 500 MG in DEXTROSE 5%-WATER 100 ML IV SCH (06:00)
== END 2017-03-12 15:00 | disposition home or self-care (01) | DRG 919 ==
LOC: ER 09:30 → EH 18:33 → UNDOADMIN 18:33 → EH 18:43 → 4N 19:55
PROC: 3E1M39Z Irrigation of Peritoneal Cavity using Dialysate, Percutaneous Approach (ICD-10-PCS; principal; 2017-03-12)
DX: T85.71XA Infection and inflammatory reaction due to peritoneal dialysis catheter, initial encounter (principal); K65.0 Generalized (acute) peritonitis; N18.6 End stage renal disease; K56.0 Paralytic ileus; I12.0 Hypertensive chronic kidney disease with stage 5 chronic kidney disease or end stage renal disease; I69.351 Hemiplegia and hemiparesis following cerebral infarction affecting right dominant side; K21.9 Gastro-esophageal reflux disease without esophagitis; D63.1 Anemia in chronic kidney disease; K44.9 Diaphragmatic hernia without obstruction or gangrene; Z79.899 Other long term (current) drug therapy; Z88.6 Allergy status to analgesic agent; Z99.2 Dependence on renal dialysis; Z90.710 Acquired absence of both cervix and uterus; Z88.0 Allergy status to penicillin
CPT/HCPCS: 36415; 74000; 74176; 80048; 80053; 80202; 81001; 82150; 82550; 83690; 83735; 84100; 84484; 85025; 85027; 87040; 87070; 87075; 87086; 87205; 89050; 90945; 90947; 93005; 93010; 96374; 96375; 96376; 99285; J0713; J1335; J1644; J2270; J2405; J3370; J3490; J7030; S0028; S0119

== ENCOUNTER → 2017-03-20 | Outpatient (CLI) | payer MEDICARE, BC | LOC: DAVITANR 11:28 | PROVIDERS: ATTEND Internal Medicine Nephrology | DX: Z51.81 Encounter for therapeutic drug level monitoring (principal) | CPT/HCPCS: 80202 ==

== ENCOUNTER → 2017-04-02 | Outpatient (CLI) | payer MEDICARE, BC ==
--- NOTE | 2017-04-02 11:34 | RADIOLOGY REPORT (SQ) ---
EXAM DESCRIPTION: CT ABD/PELVIS ORAL ONLY COMPLETED DATE/TIME: 04/02/2017 9:47 am REASON FOR STUDY: UMBILICAL HERNIA K42.9 UMBILICAL HERNIA WITHOUT OBSTRUCTION OR GANGRENE COMPARISON: 03/10/2017. TECHNIQUE: CT scan of the abdomen and pelvis performed with oral contrast and no intravenous contras t. Images reviewed with lung, soft tissue, and bone windows. Reconstructed coronal and sagittal MPR i mages reviewed. All images stored on PACS. All CT scanners at this facility use dose modulation, iterative reconstruction, and/or weight based d osing when appropriate to reduce radiation dose to as low as reasonably achievable (ALARA). [facility]: Dose Right [facility]: CareDose [facility]: Dose Right [facility]: Teradose 4D [facility]: Smart Technologies RADIATION DOSE: Up-to-date CT equipment and radiation dose reduction techniques were employed. CTDIv ol: 3.6 mGy. DLP: 190 mGy-cm. mGy. LIMITATIONS: None. FINDINGS: LOWER CHEST: No significant findings. Small pericardial effusion. No nodules or infiltra ale. NON-CONTRASTED LIVER, SPLEEN, ADRENALS: Evaluation limited by lack of IV contrast. No identified sign ificant masses. PANCREAS: No masses. No peripancreatic inflammatory changes. GALLBLADDER: No identified stones by CT criteria. No inflammatory changes to suggest cholecystitis. RIGHT KIDNEY AND URETER: No suspicious masses. Assessment limited by lack of IV contrast. A few tin y calyceal calculi, best visualized on the coronal images. No hydronephrosis or hydroureter. LEFT KIDNEY AND URETER: No suspicious masses. Assessment limited by lack of IV contrast. No signifi cant calcifications. No hydronephrosis or hydroureter. AORTA AND RETROPERITONEUM: No aneurysm. No retroperitoneal masses or adenopathy. BOWEL AND PERITONEAL CAVITY: Large hiatal hernia containing the gastric fundus and body. Peroneal di alysis catheter with the distal and in the pelvis. Numerous colonic diverticuli. No obvious masses or inflammatory changes. No free fluid. APPENDIX: Normal. PELVIS, BLADDER, AND ABDOMINAL WALL: No abnormal pelvic masses. No abdominal wall hernias. Bladder un remarkable. BONES: Degenerative changes in the spine with stimulator device. No acute findings. OTHER: No other significant finding. IMPRESSION: 1. LARGE HIATAL HERNIA CONTAINING A MAJORITY OF THE STOMACH. 2. FAIRLY EXTENSIVE COLONIC DIVERTICULOSIS. NO CT FINDINGS OF ACUTE DIVERTICULITIS. 3. A FEW TINY NONOBSTRUCTING CALYCEAL CALCULI IN THE RIGHT KIDNEY. 4. PERITONEAL DIALYSIS CATHETER. SURGICAL CHANGES IN THE LUMBAR SPINE WITH STIMULATOR DEVICE. 5. NO OTHER SIGNIFICANT OR ACUTE ABDOMINAL PROCESS. TECHNICAL DOCUMENTATION: JOB ID: [id number] Quality ID # [id number]: Final reports with documentation of one or more dose reduction techniques (e.g., Au tomated exposure control, adjustment of the mA and/or kV according to patient size, use of iterative reconstruction technique) 2010 [employer]- All Rights Reserved
== END ==
LOC: RAD 09:32
PROVIDERS: ATTEND Surgery
DX: K42.9 Umbilical hernia without obstruction or gangrene (principal); R10.9 Unspecified abdominal pain
CPT/HCPCS: 74176

== ENCOUNTER → 2017-04-15 | Outpatient (CLI) | payer MEDICARE, BC ==
--- NOTE | 2017-04-15 14:44 | RADIOLOGY REPORT (SQ) ---
EXAM DESCRIPTION: KUB COMPLETED DATE/TIME: 04/15/2017 1:59 pm REASON FOR STUDY: [facility] COMPL OF INTRAPERITONEAL DIALYSIS CATHETER, SEQUELA T85.691S [facility] COMPL OF I NTRAPERITONEAL DIALYSIS CATHETER, SE N18.6 END STAGE RENAL DISEASE COMPARISON: None. NUMBER OF VIEWS: One view. TECHNIQUE: Supine radiographic image of the abdomen acquired. LIMITATIONS: None. FINDINGS: BOWEL GAS PATTERN: Normal bowel gas pattern. No dilated loops. CALCIFICATIONS: No suspicious calcifications. SOFT TISSUES: No gross mass or suggestion of organomegaly. HARDWARE: Peritoneal dialysis catheter is present and is unremarkable. BONES: No acute fracture. No worrisome bone lesions. OTHER: No other significant finding. IMPRESSION: NO RADIOGRAPHIC EVIDENCE FOR ACUTE ABDOMINAL DISEASE. TECHNICAL DOCUMENTATION: JOB ID: [id number] [employer]- All Rights Reserved
== END ==
LOC: OD 13:31
PROVIDERS: ATTEND Internal Medicine Nephrology
DX: T85.691S Other mechanical complication of intraperitoneal dialysis catheter, sequela (principal); N18.6 End stage renal disease
CPT/HCPCS: 74000

== ENCOUNTER → 2018-04-24 | Outpatient (CLI) | payer MEDICARE, BC ==
--- NOTE | 2018-04-24 13:37 | RADIOLOGY REPORT (SQ) ---
EXAM DESCRIPTION: KUB COMPLETED DATE/TIME: 04/24/2018 12:56 pm REASON FOR STUDY: POOR DRAINAGE OF TENCKOFF CATHETER; NOTE PLACEMENT OF CATHETER TIP AND CONS T85.69 1S [facility] COMPL OF INTRAPERITONEAL DIALYSIS CATHETER, SE COMPARISON: CT abdomen pelvis 04/02/2017 KUB 04/15/2017 NUMBER OF VIEWS: One view. TECHNIQUE: Supine radiographic image of the abdomen acquired. LIMITATIONS: None. FINDINGS: BOWEL GAS PATTERN: Normal bowel gas pattern. No dilated loops. CALCIFICATIONS: Calcified pelvic phleboliths. There are calcifications adjacent to the peritoneal en try of the left-sided peritoneal dialysis catheter SOFT TISSUES: No gross mass or suggestion of organomegaly. HARDWARE: Peritoneal dialysis catheter tip coiled in the pelvis. Old lumbar bone graft stimulator el ectrodes are present, battery pack has been removed. BONES: Old bilateral L5 laminectomy OTHER: No other significant finding. IMPRESSION: Peritoneal dialysis catheter tip is coiled in the pelvic cul-de-sac. On prior films 2016 it was in the left lower quadrant. Change in position of the catheter since films 1 year ago suggests against peritoneal adhesions TECHNICAL DOCUMENTATION: JOB ID: [id number] [employer]- All Rights Reserved Reading location - IP/workstation name: [email or web address]
== END ==
LOC: OD 12:38
PROVIDERS: ATTEND Internal Medicine Nephrology
DX: T85.691S Other mechanical complication of intraperitoneal dialysis catheter, sequela (principal)
CPT/HCPCS: 74018

== ENCOUNTER → 2019-06-12 | Outpatient (CLI) | payer MEDICARE, BC | LOC: OD 11:51 | PROVIDERS: ATTEND Internal Medicine Nephrology | DX: E87.5 Hyperkalemia (principal) | CPT/HCPCS: 36415; 84132 ==

== ENCOUNTER → 2019-06-23 | Outpatient (CLI) | payer MEDICARE, BC | LOC: OD 10:28 | PROVIDERS: ATTEND Internal Medicine Nephrology | DX: E87.5 Hyperkalemia (principal) | CPT/HCPCS: 36415; 84132 ==

== ENCOUNTER → 2019-08-19 | Outpatient (CLI) | payer MEDICARE, BC ==
--- NOTE | 2019-08-19 16:01 | RADIOLOGY REPORT (SQ) ---
EXAM DESCRIPTION: KUB COMPLETED DATE/TIME: 08/19/2019 3:07 pm REASON FOR STUDY: ASSESS CATHETER PLACEMENT COMPARISON: None. NUMBER OF VIEWS: One view. TECHNIQUE: Supine radiographic image of the abdomen acquired. LIMITATIONS: None. FINDINGS: BOWEL GAS PATTERN: Normal bowel gas pattern. No dilated loops. CALCIFICATIONS: Calcific density overlies expected location of left kidney, possibly stone and measur ing 6 mm. SOFT TISSUES: No gross mass or suggestion of organomegaly. HARDWARE: Peritoneal dialysis catheter coiled over left lower quadrant. Unchanged metallic linear de nsities overlying the L4-5 vertebral bodies. BONES: No acute fracture. No worrisome bone lesions. Lower lumbar facet arthropathy. OTHER: No other significant finding. IMPRESSION: Peritoneal dialysis catheter tubing coiled over the left lower quadrant. No other evidence of acute intra-abdominal/pelvic process. Possible 6 mm left renal stone. TECHNICAL DOCUMENTATION: JOB ID: [id number] [employer]- All Rights Reserved Reading location - IP/workstation name: [email or web address]
== END ==
LOC: OD 14:52
PROVIDERS: ATTEND Internal Medicine Nephrology
DX: N18.6 End stage renal disease (principal); Z99.2 Dependence on renal dialysis
CPT/HCPCS: 74018

== ENCOUNTER 2019-08-24 06:26 | Day surgery (SDC) | payer MEDICARE, BC ==
[~2019-08-24 06:26] MED LIST changes: +CEFAZOLIN SODIUM 1 GM in DEXTROSE 5%-WATER 50 ML IV PRN; -DEXAMETHASONE SOD PHOSPHATE IV PRN; -IRON SUCROSE COMPLEX 200 MG in NORMAL SALINE 100 ML IV PRN; -NORMAL SALINE 250 ML IV PRN; -NORMAL SALINE IV PRN
[2019-08-24 07:29] LABS: ABSOLUTE EOSINOPHILS # (AUTO) 0.1 10^3/uL (0.0-0.6); ABSOLUTE LYMPHOCYTES (AUTO) 0.8 10^3/uL (0.5-4.7); BASOPHILS % (AUTO) 0.4 % (0-2); TOTAL CELLS COUNTED % (AUTO) 100 %
[2019-08-24 07:32] LABS: ABSOLUTE MONOCYTES (AUTO) 0.5 10^3/uL (0.1-1.4); ABSOLUTE NEUT (AUTO) 4.1 10^3/uL (1.7-8.2); EOSINOPHILS % (AUTO) 2.3 % (0-6); HEMATOCRIT 34.2 % (36.0-47.0); HEMOGLOBIN 11.6 g/dL (12.0-15.5); LYMPHOCYTES % (AUTO) 14.8 % (13-45); MEAN CORPUSCULAR HEMOGLOBIN 31.6 pg (27.0-33.4); MEAN CORPUSCULAR HGB CONC 33.8 g/dL (32.0-36.0); MEAN CORPUSCULAR VOLUME 93 fl (80-97); MONOCYTES % (AUTO) 9.8 % (3-13); PLATELET COUNT 178 10^3/uL (150-450); RED BLOOD COUNT 3.66 10^6/uL (3.72-5.28); SEGMENTED NEUTROPHILS % (AUTO) 72.7 % (42-78); WHITE BLOOD COUNT 5.6 10^3/uL (4.0-10.5)
[2019-08-24 07:48] LABS: ANION GAP 7 (5-19); BLOOD UREA NITROGEN 64 mg/dL (7-20); CALCIUM 9.4 mg/dL (8.4-10.2); CARBON DIOXIDE 22 mmol/L (22-30); CHLORIDE 107 mmol/L (98-107); GLUCOSE 93 mg/dL (75-110); POTASSIUM 5.3 mmol/L (3.6-5.0)
[2019-08-24] MEDS ORDERED: LIDOCAINE 0.5% INJ-PF (5 MG/ML) 50 ML SDV ONE (08:11)
[2019-08-24] MEDS ORDERED: BACITRACIN INJ 50,000 UNIT VIAL ONE (08:12)
[2019-08-24] MEDS ORDERED: MIDAZOLAM 2 MG/2 ML INJ ONE (08:13)
[2019-08-24] MEDS ORDERED: FENTANYL CITRATE INJ/PF 100 MCG/2 ML AMPUL ONE (08:13)
--- NOTE | 2019-08-24 09:53 | Discharge Summary ---
Discharge Summary (SDC) - Discharge Final Diagnosis: #1 malfunctioning peritoneal dialysis catheter. 2. End-stage renal disease requiring dialysis. Date of Surgery: 08/24/19 Discharge Date: 08/24/19 Condition: Fair Treatment or Instructions: Discharge home [after recovery per ASU criteria]. Diet , [renal],as tolerated, when fully awake advance as tolerated. Activities within moderation encouraged. Follow up in my office by appointment in on Saturday or of this week. Call for appointment. Leave wounds [covered], [keep clean and dry, until office visit in 1 week]. Hold of on school/work [until evaluation in office]. Meds per med rec. May shower [in 48 hrs], [try to keep operated area as dry as possible]. Referrals: UBALDO AN FNP-C [Primary Care Provider] - Discharge Diet: Other (Comments) - Renal. Respiratory Treatments at Home: Deep Breathing/Coughing Discharge Activity: Activity As Tolerated Report the Following to Your Physician Immediately: Shortness of Breath, Unusual Bleeding
--- NOTE | 2019-08-24 09:55 | Operative Report ---
Operative Report DATE OF SURGERY: 08/24/19 PREOPERATIVE DIAGNOSIS: #1 malfunctioning peritoneal dialysis catheter. 2. En d-stage renal disease requiring dialysis. POSTOPERATIVE DIAGNOSIS: #1 malfunctioning peritoneal dialysis catheter. 2. End-stage renal disease requiring dialysis. OPERATION: 1. Ultrasound evaluation of the right internal jugular vein. 2. Insertion of PermCath catheter via real-time access in the right internal jugular vein. 3. Angiogram and interpretation. SURGEON: JADON DURAN PSYCHOLOGY PHYSICIAN: None. ANESTHESIA: Moderate Sedation TISSUE REMOVED OR ALTERED: Not applicable. COMPLICATIONS: None. ESTIMATED BLOOD LOSS: 5 mL. INTRAOPERATIVE FINDINGS: Of a satisfactory right sided internal jugular vein about 1.5 cm diameter. Satisfactory and safe access under ultrasound guidance particularly in view of the closely adjacent carotid artery. Satisfactory position of the catheter with its tip well down in the right atrium. Easy egress of blood and ingress of heparinized solution through both ports. Final chest x-ray shows hardware in proper position, no untoward findings. Angiogram demonstrates smooth flow of contrast through the right atrium, ventricle and pulmonary outflow tract. PROCEDURE: After obtaining informed consent, the patient was taken to the [On Call Pharmacy Technician] and positioned supine. The [right neck] and chest were prepared with chlorhexidine and draped out with sterile linen. After the " universal timeout", in which it was verified that the patient continued to receive antibiotic, the procedure commenced. A steriley sheathed ultrasound probe was used to evaluate the [right internal jugular] vein. Local anesthesia was infiltrated adjacent to the probe. Access into the [right internal jugular] vein was obtained using a micropuncture needle, followed by micropuncture wire and then a micropuncture catheter. This was followed by introduction of a 0.035 guidewire the tip of which was placed down into the inferior vena cava . A 23 cm long permacatheter was now positioned over the chest and an exit site marked and locally anesthetized ,the catheter was placed between the 2 incisions. Proximally, the catheter was now positioned using a peel-away sheath, after dilation. Easy ingress of heparinized solution and egress of blood obtained through both ports. A completion angiogram was done by injecting contrast. The findings were as dictated. The neck incision was now closed using interrupted 3-0 PDS to the subcutaneous tissues, the catheter was anchored at the exit site using 3-0 PDS. A Biopatch device was now placed adjacent to the catheter. Dressings were applied and the procedure concluded. Exposure time: [1 minutes]. Exposure: 5.02 Laina bardales. Contrast amount: [5 mL] of [id number] low osmolality. Copies of the dictated operative report for Dr. Jadon Kilpatrick MD.concluded. Copies of the dictated operative report for Dr. Jadon Kilpatrick MD.
--- NOTE | 2019-08-24 11:09 | RADIOLOGY REPORT (SQ) ---
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 FLUOROSCOPY TIME: 1.0 minutes Spot images saved to PACS. TECHNIQUE: Intra-operative images acquired during surgical procedure to evaluate progress. NUMBER OF IMAGES: 54 LIMITATIONS: None. FINDINGS: Fluoroscopy was provided for intraoperative procedure. Please refer to the operative repo rt for further discussion. IMPRESSION: IMAGE(S) OBTAINED DURING PROCEDURE. COMMENT: Quality ID [id number]: Final reports for procedures using fluoroscopy that document radiation exp osure indices, or exposure time and number of fluorographic images (if radiation exposure indices are not available) Please consult full operative report of the attending physician for description of the procedure. TECHNICAL DOCUMENTATION: JOB ID: [id number] [employer]- All Rights Reserved Reading location - IP/workstation name: [email or web address]
[2019-08-24 11:39] VITALS: BP 143/67
== END 2019-08-24 11:00 | disposition home or self-care (01) ==
LOC: CCL 06:26
PROVIDERS: ATTEND Surgery
DX: T82.858A Stenosis of other vascular prosthetic devices, implants and grafts, initial encounter (principal); Y83.2 Surgical operation with anastomosis, bypass or graft as the cause of abnormal reaction of the patient, or of later complication, without mention of misadventure at the time of the procedure; I12.0 Hypertensive chronic kidney disease with stage 5 chronic kidney disease or end stage renal disease; N18.6 End stage renal disease; Z86.73 Personal history of transient ischemic attack (TIA), and cerebral infarction without residual deficits; Z79.899 Other long term (current) drug therapy; Z85.41 Personal history of malignant neoplasm of cervix uteri
CPT/HCPCS: 36415; 85025; 80048; 36558; 76937; 77001; C1713; C1752; Q9967; J2250; J3490 ×2; J0690; J3010; J7060; J1644

== ENCOUNTER 2019-11-09 19:43 | Emergency (ER) | payer MEDICARE, BC ==
--- NOTE | 2019-11-09 20:51 | ER Document Report ---
ED Medical Screen (RME) - General Chief Complaint: Urinary Problem Stated Complaint: URINARY PROBLEM Time Seen by Provider: 11/09/19 20:46 Primary Care Provider: MARCELA VARGAS PA-C [Primary Care Provider] - Follow up as needed Mode of Arrival: Wheelchair Information source: Relative Notes: 74-year-old female presented to ED for complaint of urinary symptoms disorie ntation cough congestion and becoming more confused. states she is not normally confused and normally walks around. She is end-stage renal failure and is on dialysis. She did have dialysis today. I have greeted and performed a rapid initial assessment of this patient. A comprehensive ED assessment and evaluation of the patient, analysis of test results and completion of medical decision making process will be conducted by an additional ED providers. TRAVEL OUTSIDE OF THE [place] IN LAST 30 DAYS: No - Related Data Allergies/Adverse Reactions: aspirin [Aspirin] Allergy (Mild, Verified 08/24/19 07:04) kidneys burn Past Medical History - Past Medical History Cardiac Medical History: Reports: Hx Hypertension - on meds/recent new med x 3 weeks Pulmonary Medical History: Reports: Hx Pneumonia Neurological Medical History: Reports: Hx Cerebrovascular Accident - 2003 WITH HX OF R SIDED WEAKNESS Renal/ Medical History: Reports: Hx End Stage Renal Disease - On peritoneal dialysis., Hx Peritoneal Dialysis Musculoskeltal Medical History: Denies Hx Arthritis Past Surgical History: Reports: Hx Appendectomy, Hx Orthopedic Surgery - 3 back surgeries, Hx Vascular Surgery - Fistula and a dialysis cath, has peritoneal catheter no longer used - Immunizations Hx Diphtheria, Pertussis, Tetanus Vaccination: Yes Physical Exam - Vital signs Vitals: Temp Pulse Resp BP Pulse Ox 98.2 F 65 16 163/91 H 100 11/09/19 20:16 11/09/19 20:16 11/09/19 20:16 11/09/19 20:16 11/09/19 20:16 Course - Vital Signs Vital signs: Temp Pulse Resp BP Pulse Ox 98.2 F 65 16 163/91 H 100 11/09/19 20:16 11/09/19 20:16 11/09/19 20:16 11/09/19 20:16 11/09/19 20:16 Doctor's Discharge - Discharge Referrals: MARCELA VARGAS PA-C [Primary Care Provider] - Follow up as needed
[2019-11-09 21:23] LABS: ABSOLUTE EOSINOPHILS # (AUTO) 0.1 10^3/uL (0.0-0.6); ABSOLUTE LYMPHOCYTES (AUTO) 0.9 10^3/uL (0.5-4.7); ABSOLUTE MONOCYTES (AUTO) 0.6 10^3/uL (0.1-1.4); ABSOLUTE NEUT (AUTO) 5.9 10^3/uL (1.7-8.2); BASOPHILS % (AUTO) 0.5 % (0-2); EOSINOPHILS % (AUTO) 1.4 % (0-6); HEMATOCRIT 43.6 % (36.0-47.0); HEMOGLOBIN 14.5 g/dL (12.0-15.5); MEAN CORPUSCULAR HEMOGLOBIN 31.7 pg (27.0-33.4); MEAN CORPUSCULAR HGB CONC 33.4 g/dL (32.0-36.0); MEAN CORPUSCULAR VOLUME 95 fl (80-97); MONOCYTES % (AUTO) 7.5 % (3-13); PLATELET COUNT 212 10^3/uL (150-450); RED BLOOD COUNT 4.59 10^6/uL (3.72-5.28); RED CELL DISTRIBUTION WIDTH 15.9 % (11.5-14.0); SEGMENTED NEUTROPHILS % (AUTO) 78.6 % (42-78); TOTAL CELLS COUNTED % (AUTO) 100 %; WHITE BLOOD COUNT 7.6 10^3/uL (4.0-10.5)
[2019-11-09 21:40] LABS: ALKALINE PHOSPHATASE 81 U/L (38-126); ANION GAP 9 (5-19); ASPARTATE AMINO TRANSFERASE 22 U/L (14-36); BILIRUBIN,DIRECT 0.1 mg/dL (0.0-0.4); BILIRUBIN,TOTAL 0.6 mg/dL (0.2-1.3); BLOOD UREA NITROGEN 11 mg/dL (7-20); CARBON DIOXIDE 29 mmol/L (22-30); CHLORIDE 98 mmol/L (98-107); GLUCOSE 95 mg/dL (75-110); POTASSIUM 3.7 mmol/L (3.6-5.0); TOTAL PROTEIN 6.9 g/dL (6.3-8.2)
--- NOTE | 2019-11-09 22:03 | RADIOLOGY REPORT (SQ) ---
EXAM DESCRIPTION: CLINICAL HISTORY: 74 years Female, Cough congestion confusion COMPARISON: Chest x-ray 05/03/2014. FINDINGS: Large hiatal hernia with increased air. Hernia appears larger since 2013. Mild cardiomegaly. No suspicious mediastinal widening. Mild hyperinflation. Small bilateral pleural effusions. Dialysis catheter in the right atrium. IMPRESSION: 1. A large hiatal hernia larger since 2013. 2. Small pleural effusions and mild cardiomegaly. Rule out mild element of CHF.
--- NOTE | 2019-11-09 23:37 | ER Document Report ---
ED General - General Chief Complaint: Urinary Problem Stated Complaint: URINARY PROBLEM Time Seen by Provider: 11/09/19 20:46 Primary Care Provider: MARCELA VARGAS PA-C [ALLIED HEALTH PROFESSIONAL] - Follow up as needed Mode of Arrival: Wheelchair Information source: Relative - Notes: 74-year-old woman who presents to the emergency department with a complaint of confusion and weakness. notes that she is a dialysis patient and was at dialysis today. Past 2 days she has had increased confusion and decreased appetite. He was told by the staff at dialysis that she might have a urinary tract infection or respiratory infection and was directed to come to the emergency department for further evaluation and treatment. Patient has not had fever, no vomiting, denies pain at this time. TRAVEL OUTSIDE OF THE [place] IN LAST 30 DAYS: No - Related Data Allergies/Adverse Reactions: aspirin [Aspirin] Allergy (Mild, Verified 08/24/19 07:04) kidneys burn Past Medical History - General Information source: Relative - Social History Smoking Status: Never Smoker Family History: Reviewed & Not Pertinent Patient has suicidal ideation: No Patient has homicidal ideation: No - Past Medical History Cardiac Medical History: Reports: Hx Hypertension - on meds/recent new med x 3 weeks Pulmonary Medical History: Reports: Hx Pneumonia Neurological Medical History: Reports: Hx Cerebrovascular Accident - 2003 WITH HX OF R SIDED WEAKNESS Renal/ Medical History: Reports: Hx End Stage Renal Disease - On peritoneal dialysis., Hx Peritoneal Dialysis Musculoskeletal Medical History: Denies Hx Arthritis Past Surgical History: Reports: Hx Appendectomy, Hx Orthopedic Surgery - 3 back surgeries, Hx Vascular Surgery - Fistula and a dialysis cath, has peritoneal catheter no longer used - Immunizations Hx Diphtheria, Pertussis, Tetanus Vaccination: Yes Review of Systems - Review of Systems Notes: Constitutional: Negative for fever. HENT: Negative for sore throat. Eyes: Negative for visual changes. Cardiovascular: Negative for chest pain. Respiratory: Negative for shortness of breath. Gastrointestinal: Negative for abdominal pain, vomiting or diarrhea. Genitourinary: Negative for dysuria. Musculoskeletal: Negative for back pain. Skin: Negative for rash. Neurological: Negative for headaches, weakness or numbness. 10 point ROS negative except as marked above and in HPI. Physical Exam - Vital signs Vitals: Temp Pulse Resp BP Pulse Ox 98.2 F 65 16 163/91 H 100 11/09/19 20:16 11/09/19 20:16 11/09/19 20:16 11/09/19 20:16 11/09/19 20:16 - Notes Notes: PHYSICAL EXAMINATION: Physical Exam: General: Frail elderly female in no acute distress HEENT: NC/AT, pupils equal round and reactive to light, MM moist,nares clear, Neck: supple, no adenopathy, no masses. Lungs: clear, no wheezing, no rales no rhonchi, chest: PermCath hemodialysis catheter right subclavian region CVS: Regular rate and rhythm no murmur gallop or rub Abdomen: Soft active nontender, no masses, no hepatosplenomegaly, + the periton eal dialysis catheter extending from the abdominal area, Ext: No edema clubbing or cyanosis. Neuro: Somewhat subdued and not answering questions verbally, following directions able to move all 4 extremities on command. Skin: Intact no open lesions, no rash PSYCH: Normal mood, normal affect. Course - Re-evaluation Re-evalutation: 11/10/19 01:56 Patient was evaluated for infectious etiology that might contribute to her dementia, chest x-ray is negative for pneumonia and the urinalysis is negative for infection. I discussed these findings with the and explained to him that her symptoms may be promotions representative of dialysis related dementia. And that they could follow-up with the primary doctor or burnisher and bumper regarding the changes that they noted. They are in agreement with this plan and will follow- up as an outpatient tomorrow. - Vital Signs Vital signs: Temp Pulse Resp BP Pulse Ox 98.1 F 75 16 173/73 H 97 11/10/19 00:43 11/10/19 00:43 11/10/19 00:43 11/10/19 00:43 11/10/19 00:43 - Laboratory Result Diagrams: 11/09/19 21:10 11/09/19 21:10 Laboratory results interpreted by me: 11/09/19 11/09/19 11/10/19 21:10 21:10 00:22 RDW 15.9 H Lymph % (Auto) 12.0 L Seg Neutrophils % 78.6 H Sodium 136.3 L Creatinine 4.84 H Est GFR ( Amer) 11 L Est GFR (MDRD) Non-Af 9 L Urine Protein >=500 H Urine Glucose (UA) 50 H Urine Ketones TRACE H Urine Blood SMALL H - Diagnostic Test Radiology reviewed: Image reviewed, Reports reviewed - Chest x-ray with large hiatal hernia, cardiomegaly, bilateral small pleural effusions. There is no acute infiltrates noted. Discharge - Discharge Clinical Impression: Confusion, End-stage renal disease on hemodialysis Condition: Good Disposition: HOME, SELF-CARE Additional Instructions: You were evaluated for infection possible pneumonia or urinary tract infection in the emergency department tonight, that evaluation was negative and follow-up with your primary care doctor for other possible causes of confusion/dementia will be important. You may return to the emergency department if symptoms worsen or if you have other concerns. Referrals: MARCELA VARGAS PA-C [ALLIED HEALTH PROFESSIONAL] - Follow up as needed
[2019-11-10 00:39] LABS: APPEARANCE,URINE CLEAR; BILIRUBIN,URINE NEGATIVE (NEGATIVE); COLOR,URINE YELLOW; GLUCOSE, URINE 50 mg/dL (NEGATIVE); KETONES,URINE TRACE mg/dL (NEGATIVE); PROTEIN,URINE >=500 mg/dL (NEGATIVE); URINE SPECIFIC GRAVITY 1.007; UROBILINOGEN,URINE NEGATIVE mg/dL (<2.0)
[2019-11-10 02:28] VITALS: BP 190/90
== END 2019-11-10 02:39 | disposition home or self-care (01) ==
LOC: ER 19:43
DX: R53.1 Weakness (principal); R41.0 Disorientation, unspecified; F03.90 Unspecified dementia, unspecified severity, without behavioral disturbance, psychotic disturbance, mood disturbance, and anxiety; I12.0 Hypertensive chronic kidney disease with stage 5 chronic kidney disease or end stage renal disease; N18.6 End stage renal disease; I69.951 Hemiplegia and hemiparesis following unspecified cerebrovascular disease affecting right dominant side; Z99.2 Dependence on renal dialysis; Z88.6 Allergy status to analgesic agent
CPT/HCPCS: 36415; 71046; 80053; 81001; 85025; 87040; 99283

== ENCOUNTER → 2019-11-13 | Outpatient (CLI) | payer MEDICARE, BC | LOC: OD 16:15 | PROVIDERS: ATTEND Physician Assistant Medical | DX: N39.0 Urinary tract infection, site not specified (principal); E72.29 Other disorders of urea cycle metabolism | CPT/HCPCS: 36415; 82140; 87086; 87088; 87186 ==

== ENCOUNTER 2020-03-03 18:58 | Emergency (ER) | payer MEDICARE, BC ==
--- NOTE | 2020-03-03 19:54 | ER Document Report ---
ED Medical Screen (RME) - General Chief Complaint: Abdominal Pain Stated Complaint: ABDOMINAL PAIN Time Seen by Provider: 03/03/20 19:46 Primary Care Provider: MARCELA VARGAS PA-C [Primary Care Provider] - Follow up as needed Mode of Arrival: Wheelchair Information source: Patient, Relative Cannot obtain history due to: Altered mental status Notes: HPI; 74-year-old female presents to the emergency room with spouse who states that she is been having shortness of breath with abdominal pain for the past 4 to 5 days. Previously on peritoneal dialysis was supposed to have the catheter removed prior to COVID-19 pandemic. Currently getting hemodialysis she went on Saturday she missed yesterday's treatment secondary to abdominal pain. Patient is confused history obtained via on the phone. PE: Alert and oriented to name and location only. Moderate distress. Lungs were clear to auscultation without rales rhonchi or wheezes, heart: Regular rate and rhythm without murmurs rubs or gallops. Generalized abdominal discomfort on palpation. I have greeted and performed a rapid initial assessment of this patient. A comprehensive ED assessment and evaluation of the patient, analysis of test results and completion of medical decision making process will be conducted by an additional ED providers. TRAVEL OUTSIDE OF THE [place] IN LAST 30 DAYS: No - Related Data Allergies/Adverse Reactions: aspirin [Aspirin] Allergy (Mild, Verified 08/24/19 07:04) kidneys burn Past Medical History - Past Medical History Cardiac Medical History: Reports: Hx Hypertension - on meds/recent new med x 3 weeks Pulmonary Medical History: Reports: Hx Pneumonia Neurological Medical History: Reports: Hx Cerebrovascular Accident - 2003 WITH HX OF R SIDED WEAKNESS Renal/ Medical History: Reports: Hx End Stage Renal Disease - On peritoneal dialysis., Hx Peritoneal Dialysis Musculoskeltal Medical History: Denies Hx Arthritis Past Surgical History: Reports: Hx Appendectomy, Hx Orthopedic Surgery - 3 back surgeries, Hx Vascular Surgery - Fistula and a dialysis cath, has peritoneal catheter no longer used - Immunizations Hx Diphtheria, Pertussis, Tetanus Vaccination: Yes Physical Exam - Vital signs Vitals: Temp Pulse Resp BP Pulse Ox 98.6 F 61 20 181/90 H 97 03/03/20 19:03 03/03/20 19:03 03/03/20 19:03 03/03/20 19:03 03/03/20 19:03 Course - Vital Signs Vital signs: Temp Pulse Resp BP Pulse Ox 98.6 F 61 20 181/90 H 97 03/03/20 19:03 03/03/20 19:03 03/03/20 19:03 03/03/20 19:03 03/03/20 19:03 Doctor's Discharge - Discharge Referrals: MARCELA VARGAS PA-C [Primary Care Provider] - Follow up as needed
--- NOTE | 2020-03-03 20:30 | RADIOLOGY REPORT (SQ) ---
XR CHEST 1 VIEW EXAM DATE: 03/03/2020 7:51 PM CDT HISTORY: Dyspnea. COMPARISON: 11/09/2019 FINDINGS: The heart size is within normal limits. There is no pulmonary vascular congestion. No consolidation, pleural effusion, or pneumothorax is seen. Stable right without catheter. There is a moderate-sized hiatal hernia. IMPRESSION: 1. No evidence of acute cardiopulmonary disease. 2. Moderate-sized hiatal hernia.
[2020-03-03 20:34] LABS: ABSOLUTE BASOPHILS # (AUTO) 0.1 10^3/uL (0.0-0.2); ABSOLUTE EOSINOPHILS # (AUTO) 0.2 10^3/uL (0.0-0.6); ABSOLUTE LYMPHOCYTES (AUTO) 1.3 10^3/uL (0.5-4.7); ABSOLUTE MONOCYTES (AUTO) 0.6 10^3/uL (0.1-1.4); ABSOLUTE NEUT (AUTO) 3.7 10^3/uL (1.7-8.2); HEMATOCRIT 39.3 % (36.0-47.0); HEMOGLOBIN 13.1 g/dL (12.0-15.5); LYMPHOCYTES % (AUTO) 21.9 % (13-45); MEAN CORPUSCULAR HEMOGLOBIN 32.6 pg (27.0-33.4); MEAN CORPUSCULAR HGB CONC 33.5 g/dL (32.0-36.0); MEAN CORPUSCULAR VOLUME 97 fl (80-97); MONOCYTES % (AUTO) 10.2 % (3-13); PLATELET COUNT 177 10^3/uL (150-450); RED BLOOD COUNT 4.04 10^6/uL (3.72-5.28); RED CELL DISTRIBUTION WIDTH 15.1 % (11.5-14.0); SEGMENTED NEUTROPHILS % (AUTO) 62.9 % (42-78); TOTAL CELLS COUNTED % (AUTO) 100 %; WHITE BLOOD COUNT 5.9 10^3/uL (4.0-10.5)
[2020-03-03 20:56] LABS: ALBUMIN 3.7 g/dL (3.5-5.0); ALKALINE PHOSPHATASE 50 U/L (38-126); ANION GAP 10 (5-19); ASPARTATE AMINO TRANSFERASE 19 U/L (14-36); BILIRUBIN,TOTAL 0.4 mg/dL (0.2-1.3); BLOOD UREA NITROGEN 60 mg/dL (7-20); CALCIUM 9.8 mg/dL (8.4-10.2); CARBON DIOXIDE 23 mmol/L (22-30); CHLORIDE 101 mmol/L (98-107); GLUCOSE 95 mg/dL (75-110); POTASSIUM 5.5 mmol/L (3.6-5.0); TOTAL PROTEIN 6.3 g/dL (6.3-8.2)
[2020-03-03 21:06] LABS: TROPONIN I 0.03 ng/mL
--- NOTE | 2020-03-03 21:13 | ER Document Report ---
ED Respiratory Problem - General Chief Complaint: Shortness Of Breath Stated Complaint: ABDOMINAL PAIN Time Seen by Provider: 03/03/20 19:46 Primary Care Provider: MARCELA VARGAS PA-C [Primary Care Provider] - Follow up as needed Mode of Arrival: Wheelchair Notes: 74-year-old dialysis patient presents to the emergency department with a complaint of shortness of breath. States that she was at home and felt at times breathless. She called the nurse hotline and was directed to come to the emergency department. Patient notes that her dialysis schedule is Saturday and Saturday. She is scheduled for dialysis in the morning. Presently she is in no respiratory distress, however blood pressure is noted to be 191/98. She denies chest pain, palpitations, dizziness or syncope. TRAVEL OUTSIDE OF THE [place] IN LAST 30 DAYS: No - Related Data Allergies/Adverse Reactions: aspirin [Aspirin] Allergy (Mild, Verified 08/24/19 07:04) kidneys burn Home Medications: amlodipine, trazodone, rosuvastatin, losartin, omeprazole Past Medical History - General Information source: Patient, Relative - Social History Smoking Status: Never Smoker Chew tobacco use (# tins/day): No Frequency of alcohol use: None Drug Abuse: None Family History: Reviewed & Not Pertinent Patient has homicidal ideation: No - Past Medical History Cardiac Medical History: Reports: Hx Hypertension - on meds/recent new med x 3 weeks Pulmonary Medical History: Reports: Hx Pneumonia Neurological Medical History: Reports: Hx Cerebrovascular Accident - 2003 WITH HX OF R SIDED WEAKNESS Renal/ Medical History: Reports: Hx End Stage Renal Disease - On peritoneal dialysis., Hx Peritoneal Dialysis Musculoskeletal Medical History: Denies Hx Arthritis Past Surgical History: Reports: Hx Appendectomy, Hx Orthopedic Surgery - 3 back surgeries, Hx Vascular Surgery - Fistula and a dialysis cath, has peritoneal catheter no longer used - Immunizations Hx Diphtheria, Pertussis, Tetanus Vaccination: Yes Review of Systems - Review of Systems Notes: Constitutional: Negative for fever. HENT: Negative for sore throat. Eyes: Negative for visual changes. Cardiovascular: Negative for chest pain. Respiratory: See HPI Gastrointestinal: Negative for abdominal pain, vomiting or diarrhea. Genitourinary: Negative for dysuria. Musculoskeletal: Negative for back pain. Skin: Negative for rash. Neurological: Negative for headaches, weakness or numbness. 10 point ROS negative except as marked above and in HPI. Physical Exam - Vital signs Vitals: Temp Pulse Resp BP Pulse Ox 98.6 F 61 20 181/90 H 97 03/03/20 19:03 03/03/20 19:03 03/03/20 19:03 03/03/20 19:03 03/03/20 19:03 - Notes Notes: PHYSICAL EXAMINATION: Physical Exam: General: Well-nourished well-developed 74-year-old female in no acute distress HEENT: NC/AT, pupils equal round and reactive to light, MM moist,nares clear, oropharynx clear, airway patent Neck: supple, no adenopathy, no masses. Good range of motion Lungs: clear, no wheezing, no rales no rhonchi CVS: Regular rate and rhythm no murmur gallop or rub Abdomen: Soft, active, nontender, no masses, no hepatosplenomegaly Ext: No edema, clubbing or cyanosis. Neuro: Alert and responsive, moving all 4 extremities on command, cranial nerves intact, no focal findings Skin: Intact no open lesions, no rash PSYCH: Normal mood, normal affect. Course - Re-evaluation Re-evalutation: 03/03/20 23:26 Patient was given treatment for elevated blood pressure and potassium of 5.5. States that she now feels much better and would like to go home, she has dialysis scheduled at 9 AM. I feel the patient is stable and will be to receiving definitive treatment at dialysis tomorrow morning. - Vital Signs Vital signs: Temp Pulse Resp BP Pulse Ox 98.6 F 61 18 224/99 H 97 03/03/20 19:49 03/03/20 19:03 03/03/20 21:01 03/03/20 21:01 03/03/20 21:01 - Laboratory Result Diagrams: 03/03/20 20:19 03/03/20 20:19 Laboratory results interpreted by me: 03/03/20 03/03/20 03/03/20 20:19 20:19 20:19 RDW 15.1 H Sodium 133.9 L Potassium 5.5 H BUN 60 H Creatinine 9.77 H Est GFR ( Amer) 5 L Est GFR (MDRD) Non-Af 4 L NT-Pro-B Natriuret Pep 61002 H Urine Protein Urine Glucose (UA) Urine Blood 03/03/20 21:04 RDW Sodium Potassium BUN Creatinine Est GFR ( Amer) Est GFR (MDRD) Non-Af NT-Pro-B Natriuret Pep Urine Protein >=500 H Urine Glucose (UA) 50 H Urine Blood SMALL H 03/03/20 23:27 I have reviewed laboratory data and used this information for the treatment decisions regarding the patient. - Diagnostic Test Radiology reviewed: Image reviewed, Reports reviewed - Chest x-ray: No acute cardiopulmonary disease. Moderate size hiatal hernia. - EKG Interpretation by Me EKG shows normal: Sinus rhythm - Normal sinus rhythm, rate of 63, LVH, no acute ST or T wave abnormalities noted. Discharge - Discharge Clinical Impression: Poorly-controlled hypertension, Hyperkalemia, End stage renal disease on dialysis, GERD (gastroesophageal reflux disease) Condition: Good Disposition: HOME, SELF-CARE Additional Instructions: You are seen in the emergency department with episodic shortness of breath, your blood pressure was notably elevated as well as your potassium. We have given you treatment for both and your definitive treatment will be dialysis in the morning. Please keep the appointment for dialysis at 9 AM in the a.m. If you have worsening difficulties or other concerns you may return to the emergency department for further evaluation and treatment. HOME CARE INSTRUCTIONS & INFORMATION: Thank you for choosing us for your medical needs. We hope you're satisfied with the care you received. After you leave, you must properly care for your problem and, at the same time, observe its progress. Any condition can change. Some illnesses can change rapidly over hours or days. If your condition worsens, return to the Emergency Department or see your physician promptly. ABOUT YOUR X-RAYS AND EKG'S: If you had an EKG or X-rays taken, they have been read by the Emergency Physician. The X-rays and EKG's will also be read by a Ra diologist or Gravel Inspector within 24 hours. If discrepancies are noted, you will be notified by telephone. Please be certain the ED has a correct telephone number & address where you can be reached. Also, realize that some fractures or abnormalities do not show up on initial X-rays. If your symptoms continue, see your physician. ABOUT YOUR LABORATORY TEST: If you had laboratory tests, the results have been reviewed by the Emergency Physician. Some test results (for example cultures) may not be available for several days. You will be contacted if any test result shows you need additional treatment. Please be certain the ED has a correct telephone number and address where you can be reached. ABOUT YOUR MEDICATIONS: You will receive instructions on how to take your medicine on the prescription label you receive. Additional information may be provided by the Pharmacy. If you have questions afterwards, call the ED for clarification or further instructions. Some prescribed medications may cause drowsiness. Do not perform tasks such as driving a car or operating machinery without consulting your Pharmacist. If you feel you need a refill of pain medication, your condition will need re-evaluation. Please do not call for a refill of any medication. ABOUT YOUR SIGNATURE: Signature of this document acknowledges to followin. Understanding that you received emergency treatment and that you may be released before al medical problems are known or treated. Please be certain the ED has a correct phone number & address where you can be reached. 2. Acknowledgement that you will arrange for follow-up care as recommended. 3. Authorization for the Emergency Physician to provide information to your follow-up Physician in order to maximize your care. AT ANY TIME, IF YOUR SYMPTOMS CHANGE SIGNIFICANTLY OR WORSEN OR YOU DEVELOP NEW SYMPTOMS, RETURN TO THE EMERGENCY DEPARTMENT IMMEDIATELY FOR RE-EVALUATION. OUR GOAL IS TO PROVIDE EXCELLENT MEDICAL CARE! WE HOPE THAT WE HAVE MET YOUR EXPECTATIONS DURING YOUR EMERGENCY DEPARTMENT VISIT AND THAT YOU FEEL YOU HAVE RECEIVED EXCELLENT CARE! Referrals: MARCELA VARGAS PA-C [Primary Care Provider] - Follow up as needed
[2020-03-03] MEDS ORDERED: NITROGLYCERIN 2% OINTMENT 1 GM PACKET TP ONE (21:15)
[2020-03-03] MEDS ORDERED: SODIUM POLYSTYRENE SULFONATE 15 GM/60 ML PO ONE (21:18)
[2020-03-03] MEDS ORDERED: INSULIN REG, HUMAN 100 UNIT/ML 3 ML VIAL (PYX) IV ONE (21:18)
[2020-03-03] MEDS ORDERED: DEXTROSE 50%-WATER 25 GM/50 ML DISP.SYRIN IV ONE (21:18)
[2020-03-03] MEDS ORDERED: FUROSEMIDE INJ/PF 20 MG/2 ML SDV IV ONE (21:19)
[2020-03-03] MEDS ORDERED: HYDRALAZINE HCL INJ/PF 20 MG/1 ML SDV IV ONE (21:20)
[2020-03-03 22:17] LABS: AMORPHOUS SEDIMENT,URINE TRACE /HPF; APPEARANCE,URINE SLIGHTLY-CLOUDY; BILIRUBIN,URINE NEGATIVE (NEGATIVE); COLOR,URINE STRAW; GLUCOSE, URINE 50 mg/dL (NEGATIVE); KETONES,URINE NEGATIVE (NEGATIVE); LEUKOCYTE ESTERASE,URINE NEGATIVE (NEGATIVE); NITRITE,URINE NEGATIVE (NEGATIVE); PROTEIN,URINE >=500 mg/dL (NEGATIVE); URINE SPECIFIC GRAVITY 1.009; UROBILINOGEN,URINE NEGATIVE mg/dL (<2.0)
--- NOTE | 2020-03-03 23:01 | EKG REPORT ---
SEVERITY:- ABNORMAL ECG - SINUS RHYTHM CONSIDER LEFT VENTRICULAR HYPERTROPHY : Confirmed by: Martin Alegria 03-Mar-2020 22:59:59
[2020-03-04 00:37] VITALS: BP 189/104
== END 2020-03-04 00:54 | disposition home or self-care (01) ==
LOC: ER 18:58
DX: I12.0 Hypertensive chronic kidney disease with stage 5 chronic kidney disease or end stage renal disease (principal); N18.6 End stage renal disease; Z99.2 Dependence on renal dialysis; Z79.899 Other long term (current) drug therapy; K21.9 Gastro-esophageal reflux disease without esophagitis; E87.5 Hyperkalemia; R06.02 Shortness of breath; Z87.01 Personal history of pneumonia (recurrent)
CPT/HCPCS: 93005; 99285; 96374; 96375; 36415; 83690; 85025; 80053; 81001; 84484; 83880; 71045; 93010; A9270 ×3; J3490; J1940; J0360; J1815

== ENCOUNTER 2020-03-25 06:43 | Day surgery (SDC) | payer MEDICARE, BC ==
[2020-03-22 10:31] LABS: HEMATOCRIT 39.7 % (36.0-47.0); HEMOGLOBIN 13.3 g/dL (12.0-15.5); MEAN CORPUSCULAR HEMOGLOBIN 32.2 pg (27.0-33.4); MEAN CORPUSCULAR HGB CONC 33.5 g/dL (32.0-36.0); MEAN CORPUSCULAR VOLUME 96 fl (80-97); PLATELET COUNT 185 10^3/uL (150-450); RED BLOOD COUNT 4.12 10^6/uL (3.72-5.28); RED CELL DISTRIBUTION WIDTH 14.7 % (11.5-14.0); WHITE BLOOD COUNT 7.6 10^3/uL (4.0-10.5)
[2020-03-22 10:53] LABS: ANION GAP 12 (5-19); BLOOD UREA NITROGEN 48 mg/dL (7-20); CALCIUM 10.2 mg/dL (8.4-10.2); CARBON DIOXIDE 23 mmol/L (22-30); CHLORIDE 102 mmol/L (98-107); GLUCOSE 104 mg/dL (75-110); POTASSIUM 5.6 mmol/L (3.6-5.0)
--- NOTE | 2020-03-22 19:42 | EKG REPORT ---
SEVERITY:- BORDERLINE ECG - SINUS RHYTHM, ATRIAL PREMATURE COMPLEX : Confirmed by: Martin Alegria 22-Mar-2020 19:41:43
[2020-03-25] MEDS ORDERED: FENTANYL CITRATE INJ/PF 100 MCG/2 ML AMPUL ONE (08:39)
[2020-03-25] MEDS ORDERED: ONDANSETRON HCL INJ/PF 4 MG/2 ML SDV ONE (08:39)
[2020-03-25] MEDS ORDERED: MIDAZOLAM 2 MG/2 ML INJ ONE (08:39)
[2020-03-25] MEDS ORDERED: PROPOFOL INJ 200 MG/20 ML VIAL IV ONE (08:40)
[2020-03-25] MEDS ORDERED: LIDOCAINE 0.5% INJ-PF (5 MG/ML) 50 ML SDV ONE (08:57)
[2020-03-25] MEDS ORDERED: BUPIVACAINE HCL 0.25% /EPINEPHRINE INJ/PF 30 ML SDV ONE (08:57)
[2020-03-25] MEDS ORDERED: CEFAZOLIN INJ 1 GM VIAL ONE (09:04)
--- NOTE | 2020-03-25 09:44 | Operative Report ---
Nonrecallable Operative Report DATE OF SURGERY: 03/25/20 PREOPERATIVE DIAGNOSIS: Unused peritoneal dialysis catheter POSTOPERATIVE DIAGNOSIS: Same as above OPERATION: Removal of peritoneal dialysis catheter SURGEON: LUCIE LOPEZ ANESTHESIA: LMAC TISSUE REMOVED OR ALTERED: Peritoneal dialysis catheter COMPLICATIONS: None apparent ESTIMATED BLOOD LOSS: Minimal PROCEDURE: Drains/implants: None. Procedure in detail: After informed consent was obtained, the patient was brought to the operating room and laid in the supine position. The area of the abdomen was prepped and draped in a normal sterile fashion. The skin and soft tissues were infiltrated with a mixture of 1% lidocaine and quarter percent Marcaine. An incision was created in the previous scar, adjacent to the umbilicus. The cuff was intimately associated with the fascia. The cuff was freed from the fascia using a mixture of sharp and blunt dissection. Once the cuff was removed from the fascia, the intra-abdominal portion of the catheter was removed from the patient, and divided. This portion of the catheter was passed off the field. Next, the external cuff was dissected free of the skin. This was done using sharp dissection. The remainder of the catheter was removed from the patient. Next, the defect in the fascia was closed using 0 Vicryl suture in [id number] fashion. The overlying skin was then closed using 4-0 Vicryl Rapide suture in subcuticular fashion. Dressings were placed, and the procedure was concluded. All sponge, instrument, and needle counts were correct x2. Condition: Stable.
--- NOTE | 2020-03-25 09:46 | Discharge Summary ---
Discharge Summary (SDC) - Discharge Final Diagnosis: Unused/unwanted peritoneal dialysis catheter Date of Surgery: 03/25/20 Discharge Date: 03/25/20 Condition: Stable Treatment or Instructions: Discharge home. Diet as tolerated. Activity: Nonstrenuous. Follow-up with [facility] [facility] as needed. Okay to remove dressing and shower on Saturday. No tub baths, swimming pools, or hot tubs x2 weeks. Discharge Diet: As Tolerated Respiratory Treatments at Home: Deep Breathing/Coughing, Incentive Spirometer Discharge Activity: No Lifting Over 10 Pounds, No Lifting/Push/Pulling Home Care Assistance: None Needed Report the Following to Your Physician Immediately: Shortness of Breath, Nausea, Vomiting, Increase in Pain, Unusual Bleeding, Redness, Swelling, Warmth
[2020-03-25] MEDS ORDERED: OXYCODONE-ACETAMINOPHEN 5-325 MG TABLET PO PRN (09:47)
[2020-03-25] MEDS ORDERED: OXYCODONE-ACETAMINOPHEN 5-325 MG TABLET ONE (13:11)
[2020-03-25 14:30] VITALS: BP 147/81
== END 2020-03-25 14:20 | disposition home or self-care (01) ==
LOC: OROUT 06:43
PROVIDERS: ATTEND Surgery
DX: Z49.02 Encounter for fitting and adjustment of peritoneal dialysis catheter (principal); Z79.899 Other long term (current) drug therapy; I10 Essential (primary) hypertension; Z86.73 Personal history of transient ischemic attack (TIA), and cerebral infarction without residual deficits; D64.9 Anemia, unspecified; Z85.43 Personal history of malignant neoplasm of ovary
CPT/HCPCS: 93005; 36415 ×2; 84132; 85027; 80048; 93010; 49422; U0003; J2250; J3490 ×2; J0690; J3010; A9270; J2405; J2704; 840; 87635

== ENCOUNTER 2020-03-25 21:46 | Emergency (ER) | payer MEDICARE, BC ==
[2020-03-25] MEDS ORDERED: ONDANSETRON HCL INJ/PF 4 MG/2 ML SDV IV ONE (23:36)
[2020-03-25] MEDS ORDERED: MORPHINE SULFATE 10 MG/ML INJ IV ONE (23:36)
[2020-03-26 00:29] LABS: ABSOLUTE EOSINOPHILS # (AUTO) 0.1 10^3/uL (0.0-0.6); ABSOLUTE LYMPHOCYTES (AUTO) 0.8 10^3/uL (0.5-4.7); ABSOLUTE MONOCYTES (AUTO) 0.7 10^3/uL (0.1-1.4); BASOPHILS % (AUTO) 0.3 % (0-2); EOSINOPHILS % (AUTO) 1.8 % (0-6); HEMATOCRIT 36.2 % (36.0-47.0); HEMOGLOBIN 12.3 g/dL (12.0-15.5); LYMPHOCYTES % (AUTO) 10.9 % (13-45); MEAN CORPUSCULAR HEMOGLOBIN 32.9 pg (27.0-33.4); MEAN CORPUSCULAR HGB CONC 34.1 g/dL (32.0-36.0); MEAN CORPUSCULAR VOLUME 97 fl (80-97); PLATELET COUNT 180 10^3/uL (150-450); RED BLOOD COUNT 3.75 10^6/uL (3.72-5.28); TOTAL CELLS COUNTED % (AUTO) 100 %; WHITE BLOOD COUNT 7.7 10^3/uL (4.0-10.5)
[2020-03-26 00:33] LABS: INTERNATIONAL RATION (INR) 1.02; PROTHROMBIN TIME 13.5 SEC (11.4-15.4)
[2020-03-26 00:34] LABS: PARTIAL THROMBOPLASTIN TIME 27.9 SEC (23.5-35.8)
[2020-03-26 00:46] LABS: ALBUMIN 3.6 g/dL (3.5-5.0); ALKALINE PHOSPHATASE 57 U/L (38-126); ANION GAP 9 (5-19); ASPARTATE AMINO TRANSFERASE 17 U/L (14-36); BILIRUBIN,DIRECT 0.1 mg/dL (0.0-0.4); BILIRUBIN,TOTAL 0.4 mg/dL (0.2-1.3); BLOOD UREA NITROGEN 46 mg/dL (7-20); CALCIUM 9.7 mg/dL (8.4-10.2); CARBON DIOXIDE 24 mmol/L (22-30); CHLORIDE 103 mmol/L (98-107); GLUCOSE 109 mg/dL (75-110); POTASSIUM 5.5 mmol/L (3.6-5.0); TOTAL PROTEIN 6.2 g/dL (6.3-8.2)
[2020-03-26] MEDS ORDERED: ONDANSETRON HCL INJ/PF 4 MG/2 ML SDV IV ONE (01:50)
[2020-03-26] MEDS ORDERED: SODIUM POLYSTYRENE SULFONATE 15 GM/60 ML PO ONE (03:06)
--- NOTE | 2020-03-26 04:28 | RADIOLOGY REPORT (SQ) ---
EXAM DESCRIPTION: CT ABDOMEN PELVIS WITH IV CONTRAST COMPLETED DATE/TME: 03/25/2020 00:00 CLINICAL HISTORY: 74 years Female, peritoneal dialysis catheter removed today, abd pn Comparison:Apr 02 2017 Technique: IV and oral contrast. Coronal and sagittal reformat. This exam was performed according to our departmental dose-optimization program, which includes automated exposure control, adjustment of the mA and/or kV according to patient size and/or use of iterative reconstruction technique. [facility]: Dose Right [facility]: CareDose [facility]: Dose Right [facility]: Teradose 4D [facility]: Pathogen Systems LIMITATIONS: None Findings: 5.6 x 2.3 x 6.9 cm macrolobulated homogeneous mass of the left paracentral subcutaneous abdominal wall at the level of the umbilicus may indicate a hematoma. Differential diagnosis includes phlegmon or neoplasm. There are small adjacent gas bubbles and small gas bubbles at its left paracentral posterior aspect which could are likely iatrogenic. Differential etiologies include advanced infectious-necrotizing. Large paraesophageal hernia of the left lower posterior hemithorax partially visualized. Old granulomatous disease. Small pericardial fluid. Stool retention. Colonic diverticulosis. Advanced coronary arterial calcification/stent. Atherosclerotic vascular disease. Renal atrophy. 0.3 cm right nephrolithiasis. No hydronephrosis and no hydroureter. Minimal post excretion contrast seen in the renal collecting system on delayed imaging. Small L4-L5 disc bulge. Grade 1 L4 anterolisthesis. Stimulation leads in the deep soft tissues of the lower back with bilateral tips at the posterior aspects of the facet joints, L5 level. Small multilevel disc bulges between the L2 and L5 levels. Spondylosis. Scant calcifications of the pancreas may indicate chronic pancreatitis or atherosclerotic calcification. 0.3 cm diffuse dilation of the pancreatic duct, nonspecific. 0.7 cm diameter common bile duct. No ascites. No pneumoperitoneum. No evidence of appendicitis. Appendix not definitively discerned/appendectomy. No gross evidence of gallbladder inflammation, hepatobiliary obstruction, or portal vein defect. No bowel obstruction. No evidence of abdominal aortic aneurysm. Inferior thorax, liver, gallbladder, pancreas, spleen, adrenals, renal system, gastrointestinal tract, pelvic organs, lymphatics, vasculature, and musculoskeleton appear otherwise unremarkable. IMPRESSION: 1. 5.6 x 2.3 x 6.9 cm macrolobulated homogeneous mass of the left paracentral subcutaneous abdominal wall at the level of the umbilicus may indicate a hematoma. Differential diagnosis includes phlegmon or neoplasm. There are small adjacent gas bubbles and small gas bubbles at its left paracentral posterior aspect which could are likely iatrogenic. Differential etiologies include advanced infectious-necrotizing. 2. Large paraesophageal hernia of the left lower posterior hemithorax partially visualized.
[2020-03-26] MEDS ORDERED: CEFAZOLIN 2 GM/D5W RTU 2 GM/50 ML RTUPB IV ONE (05:49)
--- NOTE | 2020-03-26 05:54 | ER Document Report ---
Entered by PADMAJA WEST SCRIBE 03/25/20 [id number] Acting as scribe for:LUCIO ARECHIGA IV, MD ED GI/ - General Chief Complaint: Abdominal Pain Stated Complaint: POST OP BLEEDING AND SWELLING Time Seen by Provider: 03/25/20 23:18 Primary Care Provider: MARCELA VARGAS PA-C [Primary Care Provider] - Follow up as needed Mode of Arrival: Wheelchair Information source: Patient Notes: This 74 year old female patient with a history of ESRD on peritoneal dialysis (MWF) presents to the ED today with complaints of severe abdominal pain and bleeding near surgical site that started just prior to arrival. Patient had a peritoneal dialysis catheter removed today by Dr. Cisse. Patient states that she was advised to come to the ED if her pain increased or if there was any bleeding. ED nurse reports that the patient was not dialyzed today; however, the patient states that she is going tomorrow. TRAVEL OUTSIDE OF THE [place] IN LAST 30 DAYS: No - Related Data Allergies/Adverse Reactions: aspirin [Aspirin] Allergy (Mild, Verified 03/25/20 07:35) kidneys burn Past Medical History - General Information source: Patient, [facility] Records - Social History Smoking Status: Never Smoker Cigarette use (# per day): No Chew tobacco use (# tins/day): No Smoking Education Provided: No Frequency of alcohol use: None Drug Abuse: None Lives with: Spouse/Significant other Family History: Reviewed & Not Pertinent Patient has suicidal ideation: No Patient has homicidal ideation: No - Past Medical History Cardiac Medical History: Reports: Hx Hypertension - on meds Pulmonary Medical History: Reports: Hx Pneumonia Neurological Medical History: Reports: Hx Cerebrovascular Accident - 2004 WITH HX OF R SIDED WEAKNESS Renal/ Medical History: Reports: Hx End Stage Renal Disease, Hx Peritoneal Dialysis Past Surgical History: Reports: Hx Appendectomy, Hx Orthopedic Surgery - 3 back surgeries, Hx Vascular Surgery - Fistula and a dialysis cath, has peritoneal catheter no longer used - Immunizations Hx Diphtheria, Pertussis, Tetanus Vaccination: Yes Review of Systems - Review of Systems Constitutional: No symptoms reported EENT: No symptoms reported Cardiovascular: No symptoms reported Respiratory: No symptoms reported Gastrointestinal: See HPI, Abdominal pain Genitourinary: No symptoms reported Female Genitourinary: No symptoms reported Musculoskeletal: No symptoms reported Skin: See HPI, Other - Bleeding at surgical site Hematologic/Lymphatic: No symptoms reported Neurological/Psychological: No symptoms reported -: Yes All other systems reviewed and negative Physical Exam - Vital signs Vitals: Temp Pulse Resp BP Pulse Ox 98.2 F 72 16 160/60 H 97 03/25/20 21:51 03/25/20 21:51 03/25/20 21:51 03/25/20 21:51 03/25/20 21:51 - General General appearance: Alert - HEENT Head: Normocephalic, Atraumatic Eyes: Normal Pupils: PERRL - Respiratory Respiratory status: No respiratory distress Chest status: Nontender Breath sounds: Normal Chest palpation: Normal - Cardiovascular Rhythm: Regular Heart sounds: Normal auscultation Murmur: No Friction rub: No Gallop: None auscultated - Abdominal Inspection: Other - No evidence of active bleeding at surgical site Distension: No distension Bowel sounds: Normal Tenderness: Nontender - Patient complains of a lot of pain, but there is no significant tenderness upon palpation Organomegaly: No organomegaly - Back Back: Normal, Nontender - Extremities General upper extremity: Normal inspection General lower extremity: Normal inspection - Neurological Neuro grossly intact: Yes Orientation: AAOx4 - Psychological Associated symptoms: Normal affect, Normal mood - Skin Skin Temperature: Warm Skin Moisture: Dry Skin Color: Normal Course - Re-evaluation Re-evalutation: 03/26/20 04:41 Patient status discussed with patient's earlier this evening. He stated he wanted to be involved in terms of decision making before any potential interventions are done. This MD notified the charge nurse that the s hould be brought to the bedside per Dr. Lilly's request to discuss CT findings and options for treatment. 03/26/20 05:50 Patient seen and evaluated by Dr. Lilly. Plan is to treat prophylactically with a dose of Ancef here in the ED and discharge patient so she can have dialysis done today. Dr. Concepcion gave patient and patient's instructions about emergency signs and symptoms and reasons to return to the emergency department. - Vital Signs Vital signs: Temp Pulse Resp BP Pulse Ox 98.7 F 75 20 170/68 H 95 03/26/20 03:11 03/26/20 03:11 03/26/20 03:11 03/26/20 03:11 03/26/20 03:11 - Laboratory Result Diagrams: 03/26/20 00:10 03/26/20 00:10 Laboratory results interpreted by me: 03/26/20 03/26/20 00:10 00:10 RDW 15.0 H Lymph % (Auto) 10.9 L Sodium 135.7 L Potassium 5.5 H BUN 46 H Creatinine 9.34 H Est GFR ( Amer) 5 L Est GFR (MDRD) Non-Af 4 L Total Protein 6.2 L - Diagnostic Test Radiology reviewed: Reports reviewed - Consults dr. lilly Time consulted: 23:53 - dr lilly recommended ct a/p with oral and iv contrast Reason for consultation: 03/26/20 00:00 s/p peritoneal dialysis catheter removal today, pt c/o severe abdominal pain Time consulted: 04:43 - dr. lilly stated he would come see the pt and requested be brought to bedside Reason for consultation: 03/26/20 04:43 subcutaneous hematoma seen on CT. Consulted provider: will come to ER Discharge - Discharge Clinical Impression: Subcutaneous hematoma Condition: Good Disposition: HOME, SELF-CARE Additional Instructions: Return to the Emergency Department without delay if any worse. HOME CARE INSTRUCTIONS & INFORMATION: Thank you for choosing us for your medical needs. We hope you're satisfied with the care you received. After you leave, you must properly care for your problem and, at the same time, observe its progress. Any condition can change. Some illnesses can change rapidly over hours or days. If your condition worsens, return to the Emergency Department or see your physician promptly. ABOUT YOUR X-RAYS AND EKG'S: If you had an EKG or X-rays taken, they have been read by the Emergency Physician. The X-rays and EKG's will also be read by a Radiologist or Financial Recording Clerk within 24 hours. If discrepancies are noted, you will be notified by telephone. Please be certain the ED has a correct telephone number & address where you can be reached. Also, realize that some fractures or abnormalities do not show up on initial X-rays. If your symptoms continue, see your physician. ABOUT YOUR LABORATORY TEST: If you had laboratory tests, the results have been reviewed by the Emergency Physician. Some test results (for example cultures) may not be available for several days. You will be contacted if any test result shows you need additional treatment. Please be certain the ED has a correct telephone number and address where you can be reached. ABOUT YOUR MEDICATIONS: You will receive instructions on how to take your medicine on the prescription label you receive. Additional information may be provided by the Pharmacy. If you have questions afterwards, call the ED for clarification or further instructions. Some prescribed medications may cause drowsiness. Do not perform tasks such as driving a car or operating machinery without consulting your Pharmacist. If you feel you need a refill of pain medication, your condition will need re-evaluation. Please do not call for a refill of any medication. ABOUT YOUR SIGNATURE: Signature of this document acknowledges to followin. Understanding that you received emergency treatment and that you may be released before al medical problems are known or treated. Please be certain the ED has a correct phone number & address where you can be reached. 2. Acknowledgement that you will arrange for follow-up care as recommended. 3. Authorization for the Emergency Physician to provide information to your follow-up Physician in order to maximize your care. AT ANY TIME, IF YOUR SYMPTOMS CHANGE SIGNIFICANTLY OR WORSEN OR YOU DEVELOP NEW SYMPTOMS, RETURN TO THE EMERGENCY DEPARTMENT IMMEDIATELY FOR RE-EVALUATION. OUR GOAL IS TO PROVIDE EXCELLENT MEDICAL CARE! WE HOPE THAT WE HAVE MET YOUR EXPECTATIONS DURING YOUR EMERGENCY DEPARTMENT VISIT AND THAT YOU FEEL YOU HAVE RECEIVED EXCELLENT CARE! Referrals: MARCELA VARGAS PA-C [Primary Care Provider] - Follow up as needed LUCIE CISSE MD [ACTIVE STAFF] - 03/28/20 I personally performed the services described in the documentation, reviewed and edited the documentation which was dictated to the scribe in my presence, and it accurately records my words and actions.
--- NOTE | 2020-03-26 06:05 | PDOC CONSULTATION ---
Consultation Consult Date: 03/26/20 Provider Consulted: IGOR YOST Consult reason:: Postoperative subcutaneous hematoma History of Present Illness Admission Date/PCP: MARCELA VARGAS PA-C History of Present Illness: CAPRI GARCIA is a 74 year old female with end-stage renal disease, dementia, had a peritoneal catheter removed yesterday by . Patient apparently developed hematoma immediately postop and it was subsequently drained by Dr. Cisse at bedside and pressure dressing was applied. This information was obtained from the patient's . claim when patient got home after sleeping for about 2hours patient complained of pains on the operative site with some swelling. Patient went to ED where a CT scan of the abdomen was done which showed about a 5 x 4cm hematoma at the subcutaneous level with dialysis catheter was removed. Past Medical History Cardiac Medical History: Reports: Hypertension - on meds Denies: Coronary Artery Disease, Myocardial Infarction Pulmonary Medical History: Reports: Pneumonia Denies: Asthma, Bronchitis, Chronic Obstructive Pulmonary Disease (COPD) Neurological Medical History: Denies: Seizures Renal/ Medical History: Reports: End Stage Renal Disease - On peritoneal dialysis. Musculoskeltal Medical History: Denies: Arthritis Hematology: Reports: Anemia Past Surgical History Past Surgical History: Reports: Appendectomy, Orthopedic Surgery - 3 back surgeries, Vascular Surgery - Fistula and a dialysis cath, has peritoneal catheter no longer used Social History Smoking Status: Never Smoker Family History Family History: Reviewed & Not Pertinent Parental Family History Reviewed: Yes Children Family History Reviewed: No Sibling(s) Family History Reviewed.: No Medication/Allergy Home Medications: Metoprolol Succinate [Toprol XL 100 mg Tablet] 50 mg PO BID 05/08/13 Trazodone HCl 100 mg PO QHS 05/08/13 Losartan Potassium 100 mg PO QHS 03/24/14 Oxycodone HCl/Acetaminophen [Percocet 5-325 mg Tablet] 1 tab PO ASDIR PRN 04/26/14 Amlodipine Besylate 5 mg PO QHS 03/10/17 Furosemide 20 mg PO DAILY 03/10/17 Rosuvastatin Calcium 10 mg PO DAILY 03/10/17 Clonidine HCl [Catapres] 0.1 mg PO HSP PRN 03/22/20 Cyanocobalamin (Vitamin B-12) [Vitamin B12] 1,000 mcg PO DAILY 03/22/20 Phenobarb/Hyoscy/Atropine/Scop [ Elixir] 16.2 mg PO PRN PRN 03/22/20 Sevelamer Carbonate [Renvela] 800 mg PO TID 03/22/20 Allergies/Adverse Reactions: aspirin [Aspirin] Allergy (Mild, Verified 03/25/20 07:35) kidneys burn Review of Systems Constitutional: PRESENT: other - No apparent fever no chills Musculoskeletal: PRESENT: other - Pains on the left side of the abdomen at the operative site Physical Exam Vital Signs: Temp Pulse Resp BP Pulse Ox 98.7 F 75 20 170/68 H 95 03/26/20 03:11 03/26/20 03:11 03/26/20 03:11 03/26/20 03:11 03/26/20 03:11 Intake & Output 03/24/20 03/25/20 03/26/20 06:59 06:59 06:59 Weight 52.617 kg General appearance: PRESENT: mild distress Head exam: PRESENT: atraumatic Respiratory exam: PRESENT: clear to auscultation rima Cardiovascular exam: PRESENT: RRR Pulses: PRESENT: normal radial pulses Vascular exam: PRESENT: normal capillary refill GI/Abdominal exam: PRESENT: soft, tenderness - Mild swelling and tenderness along the left side inferior lateral to the umbilicus where the dialysis catheter was removed. Patient claims that the pains are better and less tender. Rectal exam: PRESENT: deferred Neurological exam: PRESENT: alert, oriented to person Psychiatric exam: PRESENT: appropriate affect Skin exam: PRESENT: normal color, warm Results Laboratory Results: 03/26/20 00:10 03/26/20 00:10 03/26/20 03/26/20 03/26/20 00:10 00:10 00:10 WBC 7.7 RBC 3.75 Hgb 12.3 Hct 36.2 MCV 97 MCH 32.9 MCHC 34.1 RDW 15.0 H Plt Count 180 Seg Neutrophils % 78.0 Sodium 135.7 L Potassium 5.5 H Chloride 103 Carbon Dioxide 24 Anion Gap 9 BUN 46 H Creatinine 9.34 H Est GFR ( Amer) 5 L Glucose 109 Calcium 9.7 Total Bilirubin 0.4 AST 17 Alkaline Phosphatase 57 Total Protein 6.2 L Albumin 3.6 Blood Type A POSITIVE Antibody Screen NEGATIVE Impressions: Abdomen/Pelvis CT 06/05/20 00:00 IMPRESSION: 1. 5.6 x 2.3 x 6.9 cm macrolobulated homogeneous mass of the left paracentral subcutaneous abdominal wall at the level of the umbilicus may indicate a hematoma. Differential diagnosis includes phlegmon or neoplasm. There are small adjacent gas bubbles and small gas bubbles at its left paracentral posterior aspect which could are likely iatrogenic. Differential etiologies include advanced infectious-necrotizing. 2. Large paraesophageal hernia of the left lower posterior hemithorax partially visualized. Assessment & Plan - Diagnosis (1) Postoperative hematoma of subcutaneous tissue Qualifiers: Procedure type: non-dermatologic Qualified Code(s): L76.32 - Postprocedural hematoma of skin and subcutaneous tissue following other procedure Is this a current diagnosis for this admission?: Yes (2) End stage renal disease on dialysis Is this a current diagnosis for this admission?: Yes - Time Time Spent: 30 to 50 Minutes - Plan Summary Plan Summary: 74-year-old female with end-stage renal disease on dialysis, dementia, had infected peritoneal dialysis catheter removed yesterday by . Patient developed subcutaneous hematoma post op which was partially drained in the recovery room by Dr. Cisse. Patient was sent home with pressure dressing applied. Patient able to sleep for about 2 hours and then when she woke up developed more pains and swelling under operative site. Patient brought to ED by her . CT scan of the abdomen was done which showed subcutaneous hematoma about 3 x 5 x 4cm. On physical exam, the swelling appears to be less according to the and it is relatively soft. There is mild tenderness. There is no redness. Patient feels comfortable to go home at this time. Pressure dressing with the use of corsett was put put back. Recommendations: May give a gram of Ancef. Patient may go for hemodialysis today at 11 AM Continue with the pressure dressing Instructions were given to the if the swelling gets worse or patient's having more pains this weekend to come back to the ED. Otherwise is follow-up with scheduled appointment with Dr. Cisse in the surgical clinic
[2020-03-26] MEDS ORDERED: CEFAZOLIN INJ 1 GM VIAL ONE (06:27)
[2020-03-26 07:20] VITALS: BP 144/62
== END 2020-03-26 07:57 | disposition home or self-care (01) ==
LOC: ER 21:46
DX: L76.32 Postprocedural hematoma of skin and subcutaneous tissue following other procedure (principal); Y84.1 Kidney dialysis as the cause of abnormal reaction of the patient, or of later complication, without mention of misadventure at the time of the procedure; I12.0 Hypertensive chronic kidney disease with stage 5 chronic kidney disease or end stage renal disease; N18.6 End stage renal disease; Z99.2 Dependence on renal dialysis; K44.9 Diaphragmatic hernia without obstruction or gangrene; R10.9 Unspecified abdominal pain; Z79.899 Other long term (current) drug therapy; Z88.8 Allergy status to other drugs, medicaments and biological substances
CPT/HCPCS: 96376; 99284; 96375; 96365; 93005; 86900; 86901; 36415 ×2; 86850; 84132; 85025; 85027; 85610; 85730; 80048; 80053; 74177; 93010; 00840; U0003; J2250; J3490 ×2; J0690 ×3; J3010; J2270; A9270 ×2; J2405 ×2; J2704; 840; 87635

== ENCOUNTER → 2020-06-24 | Outpatient (CLI) | payer MEDICARE, BC ==
--- NOTE | 2020-06-24 18:19 | RADIOLOGY REPORT (SQ) ---
EXAM DESCRIPTION: SHOULDER LEFT 2 OR MORE VIEWS IMAGES COMPLETED DATE/TIME: 06/24/2020 3:57 pm REASON FOR STUDY: PAIN IN UNSPECIFIED SHOULDER COMPARISON: None. NUMBER OF VIEWS: Three views left shoulder. LIMITATIONS: None. FINDINGS: There is no acute or significant bone, joint or soft tissue abnormality. OTHER: No other significant finding. IMPRESSION: NORMAL STUDY. TECHNICAL DOCUMENTATION: JOB ID: [id number] Reading location - [facility]workstation [facility]
== END ==
LOC: OD 15:30
PROVIDERS: ATTEND Physician Assistant Medical
DX: S42.002D Fracture of unspecified part of left clavicle, subsequent encounter for fracture with routine healing (principal); M25.512 Pain in left shoulder; X58.XXXD Exposure to other specified factors, subsequent encounter

== ENCOUNTER 2020-07-28 14:51 | Emergency (ER) | payer MEDICARE, BC ==
--- NOTE | 2020-07-28 15:09 | ER Document Report ---
ED Medical Screen (RME) - General Chief Complaint: Chest Pain Stated Complaint: CHEST PAIN Time Seen by Provider: 07/28/20 15:02 Primary Care Provider: MARCELA VARGAS PA-C [Primary Care Provider] - Follow up as needed Information source: Patient Notes: Patient presents after developing chest pain earlier today while at dialysis. Patient was given nitroglycerin at dialysis and by the paramedics. Patient presently denies any chest discomfort. Patient does complain of left shoulder pain. Patient denies any cough or cold symptoms. Patient denies any nausea or vomiting. Patient does complain of some shortness of breath. Patient states that she is presently dialyzing Saturday through Saturday every day. Patient is a poor historian and prefers to have her spouse answer her questions. I have greeted and performed a rapid initial assessment of this patient. A comprehensive ED assessment and evaluation of the patient, analysis of test results and completion of the medical decision making process will be conducted by additional ED providers. TRAVEL OUTSIDE OF THE [place] IN LAST 30 DAYS: No - Related Data Allergies/Adverse Reactions: aspirin [Aspirin] Allergy (Mild, Verified 03/25/20 07:35) kidneys burn Past Medical History - Past Medical History Cardiac Medical History: Reports: Hx Hypertension - on meds Denies: Hx Coronary Artery Disease, Hx Heart Attack Pulmonary Medical History: Reports: Hx Pneumonia Denies: Hx Asthma, Hx Bronchitis, Hx COPD Neurological Medical History: Reports: Hx Cerebrovascular Accident - 2003 WITH HX OF R SIDED WEAKNESS. Denies: Hx Seizures Renal/ Medical History: Reports: Hx End Stage Renal Disease - On peritoneal dialysis., Hx Peritoneal Dialysis Musculoskeltal Medical History: Denies Hx Arthritis Past Surgical History: Reports: Hx Appendectomy, Hx Orthopedic Surgery - 3 back surgeries, Hx Vascular Surgery - Fistula and a dialysis cath, has peritoneal catheter no longer used - Immunizations Hx Diphtheria, Pertussis, Tetanus Vaccination: Yes Physical Exam - Respiratory Respiratory status: No respiratory distress Chest status: Nontender - Cardiovascular Rhythm: Irregularly irregular Doctor's Discharge - Discharge Referrals: MARCELA VARGAS PA-C [Primary Care Provider] - Follow up as needed
[2020-07-28 15:34] LABS: ABSOLUTE EOSINOPHILS # (AUTO) 0.2 10^3/uL (0.0-0.6); ABSOLUTE LYMPHOCYTES (AUTO) 0.5 10^3/uL (0.5-4.7); ABSOLUTE MONOCYTES (AUTO) 0.7 10^3/uL (0.1-1.4); ABSOLUTE NEUT (AUTO) 2.9 10^3/uL (1.7-8.2); BASOPHILS % (AUTO) 0.5 % (0-2); EOSINOPHILS % (AUTO) 3.6 % (0-6); HEMATOCRIT 31.7 % (36.0-47.0); HEMOGLOBIN 10.6 g/dL (12.0-15.5); LYMPHOCYTES % (AUTO) 12.3 % (13-45); MEAN CORPUSCULAR HEMOGLOBIN 32.7 pg (27.0-33.4); MEAN CORPUSCULAR HGB CONC 33.5 g/dL (32.0-36.0); MEAN CORPUSCULAR VOLUME 98 fl (80-97); MONOCYTES % (AUTO) 15.5 % (3-13); PLATELET COUNT 173 10^3/uL (150-450); RED BLOOD COUNT 3.25 10^6/uL (3.72-5.28); RED CELL DISTRIBUTION WIDTH 14.7 % (11.5-14.0); SEGMENTED NEUTROPHILS % (AUTO) 68.1 % (42-78); TOTAL CELLS COUNTED % (AUTO) 100 %; WHITE BLOOD COUNT 4.3 10^3/uL (4.0-10.5)
[2020-07-28 15:53] LABS: ALBUMIN 3.1 g/dL (3.5-5.0); ALKALINE PHOSPHATASE 72 U/L (38-126); ANION GAP 6 (5-19); ASPARTATE AMINO TRANSFERASE 18 U/L (14-36); BILIRUBIN,DIRECT 0.4 mg/dL (0.0-0.4); BILIRUBIN,TOTAL 0.4 mg/dL (0.2-1.3); BLOOD UREA NITROGEN 24 mg/dL (7-20); CALCIUM 8.4 mg/dL (8.4-10.2); CARBON DIOXIDE 29 mmol/L (22-30); CHLORIDE 100 mmol/L (98-107); GLUCOSE 97 mg/dL (75-110); POTASSIUM 4.2 mmol/L (3.6-5.0); TOTAL PROTEIN 5.4 g/dL (6.3-8.2)
--- NOTE | 2020-07-28 15:57 | RADIOLOGY REPORT (SQ) ---
EXAM DESCRIPTION: CHEST SINGLE VIEW IMAGES COMPLETED DATE/TIME: 07/28/2020 3:34 pm REASON FOR STUDY: cp COMPARISON: 03/03/2020 EXAM PARAMETERS: NUMBER OF VIEWS: One view. TECHNIQUE: Single frontal radiographic view of the chest acquired. RADIATION DOSE: NA LIMITATIONS: None. FINDINGS: LUNGS AND PLEURA: Hyperexpansion of the lungs. Cannot exclude opacification at the left h eart border. No pleural effusion. MEDIASTINUM AND HILAR STRUCTURES: No masses. Contour normal. HEART AND VASCULAR STRUCTURES: Heart normal in size. Normal vasculature. BONES: No acute findings. HARDWARE: Dual-lumen catheter on the right. Monitoring device. OTHER: No other significant finding. IMPRESSION: Chronic lung changes. Cannot exclude consolidation at the left heart border. However, this likely represents a hiatal hernia that can be seen on the prior study better. TECHNICAL DOCUMENTATION: JOB ID: [id number] 2010 [employer]- All Rights Reserved Reading location - IP/workstation name: [email or web address]
--- NOTE | 2020-07-28 19:21 | ER Document Report ---
ED Cardiac - General Chief Complaint: Chest Pain Stated Complaint: CHEST PAIN Time Seen by Provider: 07/28/20 15:02 Primary Care Provider: CARDIOLOGY [Provider Group] - Follow up as needed MARCELA VARGAS PA-C [ALLIED HEALTH PROFESSIONAL] - Follow up as needed TRAVEL OUTSIDE OF THE [place] IN LAST 30 DAYS: No - HPI Patient complains to provider of: Chest pain Is the pain a: New problem Quality of pain: Severe Chest pain radiation location: None Severity now: None Pain level currently: Denies Positive cardiac history: No Associated symptoms: None Exacerbated by: Denies Relieved by: Nothing Similar symptoms previously: Yes Notes: Patient is a 74-year-old female on dialysis who presents with chest pain. States that pain began at dialysis today. It is on her left chest. She has had symptoms off and on throughout the week, however. Patient denies any shortness of breath. No back pain. Patient states she did fall and hit her left shoulder a while back but this pain in her chest is different. She denies any nausea or vomiting. She sees a workforce investment act career manager in [place]. He recently diagnosed her with atrial fibrillation. She is not on a blood thinner. She is currently wearing a 30-day heart monitor. Patient states she has been doing dialysis daily because they thought that she may have some fluid around her heart. - Related Data Allergies/Adverse Reactions: aspirin [Aspirin] Allergy (Mild, Verified 03/25/20 07:35) kidneys burn Past Medical History - General Information source: Patient - Social History Smoking Status: Unknown if Ever Smoked Family History: Reviewed & Not Pertinent - Past Medical History Cardiac Medical History: Reports: Hx Hypertension - on meds Denies: Hx Coronary Artery Disease, Hx Heart Attack Pulmonary Medical History: Reports: Hx Pneumonia Denies: Hx Asthma, Hx Bronchitis, Hx COPD Neurological Medical History: Reports: Hx Cerebrovascular Accident - 2003 WITH HX OF R SIDED WEAKNESS. Denies: Hx Seizures Renal/ Medical History: Reports: Hx End Stage Renal Disease - On peritoneal dialysis., Hx Peritoneal Dialysis Musculoskeletal Medical History: Denies Hx Arthritis Past Surgical History: Reports: Hx Appendectomy, Hx Orthopedic Surgery - 3 back surgeries, Hx Vascular Surgery - Fistula and a dialysis cath, has peritoneal catheter no longer used - Immunizations Hx Diphtheria, Pertussis, Tetanus Vaccination: Yes Review of Systems - Review of Systems Notes: CONSTITUTIONAL: No fever, fatigue or weight loss. SKIN: No rash. HENT: No congestion, ear pain, or sore throat. EYES: No recent vision problems or eye pain. ENDOCRINE: No polyuria or polydipsia. CARDIOVASCULAR: Positive for chest pain RESPIRATORY: No cough, shortness of breath, congestion, or wheezing. GASTROINTESTINAL: No abdominal pain, nausea, vomiting, bloody stools or diarrhea. GENITOURINARY: No dysuria. MUSCULOSKELETAL: No joint pain or swelling. LYMPHATIC: No swollen glands. NEUROLOGIC: No seizures. No headache, focal weakness or sensory changes. HEMATOLOGIC: No unusual bruising or bleeding. PSYCHIATRIC: No depression or anxiety. Physical Exam - Vital signs Vitals: Resp Pulse Ox 25 H 96 07/28/20 14:58 07/28/20 14:58 Interpretation: Normal - Notes Notes: GENERAL: No acute distress, non-toxic appearance. HEAD: Normal with no signs of head trauma. EYES: PERRLA, EOMI, conjunctiva normal, no discharge. EARS: Hearing grossly intact. NOSE: Normal. THROAT: Oropharynx is normal. NECK: Normal range of motion, no tenderness, supple, no lymphadenopathy, No adenopathy, no JVD. CHEST: Clear breath sounds bilaterally. No wheezes, rales, or rhonchi. CARDIAC: Regular rate and rhythm. S1 and S2, without murmurs, gallops, or rubs. VASCULAR: No Edema. Peripheral pulses normal and equal in all extremities. ABDOMEN: Normal and soft with no tenderness GASTROINTESTINAL: Bowel sounds normal GENITOURINARY: Normal, No tenderness LYMPATHTIC: No lymphadenopathy noted. MUSCULOSKELETAL: Good range of motion of all major joints. Extremities without clubbing, cyanosis or edema. NEUROLOGICAL: Alert and oriented x 3. No focal sensory or strength deficits. Speech normal. Follows commands appropriately. PSYCHIATRIC: Normal Affect, judgement and mood. SKIN: Normal appearance with no rashes or lesions. Course - Re-evaluation Re-evalutation: 07/29/20 00:29 Patient had 2 elevated troponins that were around 2. Her EKG is nonacute. I discussed with the patient and her . They stated that if she does need any cardiac work-up, she wants to go to [place] as that is where her workforce investment act career manager is and that is who put on her heart monitor. They absolutely do not want to stay here for any cardiac work. I discussed with the [facility] transfer center. I talked with a workforce investment act career manager who recommended that we transfer her to [facility] as she does have an elevated troponin. I discussed this with the patient and her . She adamantly refused. She states she would like to go home. Patient's states that she has a rectal prolapse and she n eeds to be at home to use the bathroom right now and that is why she does not want to be admitted to the hospital or transferred. She is refusing to use the bathroom here. I informed her that she would be leaving AGAINST MEDICAL ADVICE. I also discussed with her that she is at risk for cardiac issues and even possibly if she goes home without the proper work up and transfer. Patient states that she understands this. I believe she and her are competent to make these decisions. I ordered a second EKG but patient refused. She states she just wants to go home. She states that she will go to the [place] ER tomorrow. I recommended they drive there tonight, but she stated t hat "she had a few things to do at home first". I again informed her of the risks of going home including and patient and her stated that they understood. She also declined any aspirin as she states she is allergic and does not want any. I informed her that she needs to return to any ER immediately if she has any return of symptoms. - Vital Signs Vital signs: Temp Pulse Resp BP Pulse Ox 16 209/99 H 98 07/28/20 20:30 07/28/20 20:30 07/28/20 20:30 - Laboratory Result Diagrams: 07/28/20 15:15 07/28/20 15:15 Laboratory results interpreted by me: 07/28/20 07/28/20 15:15 15:15 RBC 3.25 L Hgb 10.6 L Hct 31.7 L MCV 98 H RDW 14.7 H Lymph % (Auto) 12.3 L [place] % (Auto) 15.5 H Sodium 134.9 L BUN 24 H Creatinine 4.56 H Est GFR ( Amer) 11 L Est GFR (MDRD) Non-Af 9 L Total Protein 5.4 L Albumin 3.1 L - Diagnostic Test Radiology reviewed: Image reviewed, Reports reviewed - EKG Interpretation by Me Rate: Normal Rhythm: Arrthymia When compared to previous EKG there are: Changes noted Additional EKG results interpreted by me: 07/28/20 19:22 EKG interpreted by me. irregular rhythm at a rate of 93. C4 88. No acute ST changes. Rhythm is changed from previous EKG. Discharge - Discharge Clinical Impression: Elevated troponin, Left against medical advice Chest pain Qualifiers: Chest pain type: unspecified Qualified Code(s): R07.9 - Chest pain, unspecified Condition: Stable Disposition: AGAINST MEDICAL ADVICE Instructions: Angina Episode ([facility]), Chest Pain of Unclear Cause ([facility]) Additional Instructions: You are leaving AGAINST MEDICAL ADVICE. Please return immediately to the ER for any symptoms as it was strongly recommended that you be admitted today. Make sure you follow-up with cardiology. Referrals: MARCELA VARGAS PA-C [ALLIED HEALTH PROFESSIONAL] - Follow up as needed CARDIOLOGY [Provider Group] - Follow up as needed
--- NOTE | 2020-07-28 19:27 | EKG REPORT ---
SEVERITY:- ABNORMAL ECG - LEFT VENTRICULAR HYPERTROPHY BORDERLINE PROLONGED QT INTERVAL WANDERING ATRIAL PACEMAKER : Confirmed by: Azra Castro MD 28-Jul-2020 19:26:51
[2020-07-28 22:32] VITALS: BP 209/99
== END 2020-07-28 20:41 | disposition left against medical advice (07) ==
LOC: ER 14:51
DX: R07.9 Chest pain, unspecified (principal); R79.89 Other specified abnormal findings of blood chemistry; I48.91 Unspecified atrial fibrillation; I12.0 Hypertensive chronic kidney disease with stage 5 chronic kidney disease or end stage renal disease; N18.6 End stage renal disease; Z99.2 Dependence on renal dialysis; K62.3 Rectal prolapse; Z88.8 Allergy status to other drugs, medicaments and biological substances; Z53.29 Procedure and treatment not carried out because of patient's decision for other reasons
CPT/HCPCS: 36415; 71045; 80053; 83735; 84443; 84484; 85025; 93005; 93010; 99285